=== PATIENT | female | born 1940 | race Caucasian/White ===

== ENCOUNTER 2016-10-01 11:06 | Outpatient (CLI) | payer MEDICARE, OTHER | END 2016-10-01 11:07 | disposition home or self-care (01) | DX: E78.2 Mixed hyperlipidemia (principal); Z79.899 Other long term (current) drug therapy; F32.9 Major depressive disorder, single episode, unspecified ==

== ENCOUNTER 2017-04-12 09:30 | Outpatient (CLI) | payer MEDICARE, OTHER ==
[2017-04-12 19:29] LABS: BASOPHILS % (AUTO) 1.1 %; EOSINOPHILS # (AUTO) 0.1 10^3/uL (0.0-0.7); HCT - HEMATOCRIT 36.6 % (37.0-47.0); HGB - HEMOGLOBIN 12.1 g/dL (12.0-16.0); LYMPHOCYTES # (AUTO) 1.1 10^3/uL (1.5-3.5); LYMPHOCYTES % (AUTO) 26.8 %; MEAN CORPUSCULAR HEMOGLOBIN 30.8 pg (27.0-31.0); MEAN CORPUSCULAR HGB CONC 33.1 g/dL (32.0-36.0); MEAN CORPUSCULAR VOLUME 92.9 fL (81.0-99.0); MONOCYTES # (AUTO) 0.3 10^3/uL (0.0-1.0); MONOCYTES % (AUTO) 6.9 %; NEUTROPHILS # (AUTO) 2.7 10^3/uL (1.5-6.6); NEUTROPHILS % (AUTO) 63.2 %; NUCLEATED RED BLOOD CELLS AUTO 0.2 /100WBC; RED BLOOD COUNT 3.94 10^6/uL (4.20-5.40); RED CELL DISTRIBUTION WIDTH 14.8 % (12.0-15.0); UNCORRECTED WHITE BLOOD COUNT 4.3 x10^3/uL; WHITE BLOOD COUNT 4.3 x10^3/uL (4.8-10.8)
[2017-04-12 19:33] LABS: CHOLESTEROL 270 mg/dL; HDL CHOLESTEROL 54 mg/dL; LDL/HDL RATIO 3.4 (<4.4); TRIGLYCERIDES 176 mg/dL; VLDL CHOLESTEROL 35 mg/dL
== END 2017-04-12 09:31 | disposition home or self-care (01) ==
LOC: LAB.F 09:30
PROVIDERS: ATTEND Physician Assistant Medical
DX: E78.2 Mixed hyperlipidemia (principal)
CPT/HCPCS: 36415; 80061; 85025

== ENCOUNTER 2018-02-13 11:41 | Outpatient (CLI) | payer MEDICARE, OTHER ==
--- NOTE | 2018-02-14 18:58 | Mammography Report ---
DIGITAL SCREENING MAMMOGRAM: 02/13/2018 COMPARISON: 05/14/2016, 04/23/2015, 07/09/2011, 04/22/2010 and 04/11/2009. TECHNIQUE: Bilateral digital CC and MLO projections. FINDINGS: There is extensive fatty replacement of the breast tissue. There is no dominant mass, architectural distortion, skin thickening, suspicious microcalcifications, or interval change. IMPRESSION: NEGATIVE. BIRADS category: 1, negative. Suggest return to routine screening in 12 months. STANDARD QUALIFYING STATEMENTS 1. This examination was reviewed with the aid of Computed-Aided Detection (CAD). 2. A negative or benign imaging report should not delay biopsy if clinically suspicious findings are present. Consider surgical consultation if warranted. More than 5% of cancers are not identified by imaging. 3. Dense breasts may obscure an underlying neoplasm. TD: 02/14/2018 18:13
== END 2018-02-13 11:42 | disposition home or self-care (01) ==
LOC: DI.S 11:41
PROVIDERS: ATTEND Physician Assistant Medical
DX: Z12.31 Encounter for screening mammogram for malignant neoplasm of breast (principal)
CPT/HCPCS: 77067

== ENCOUNTER 2019-10-02 09:37 | Outpatient (CLI) | payer MEDICARE, OTHER ==
[2019-10-02 18:12] LABS: CHOL/HDL RATIO 4.6 (<4.4); CHOLESTEROL 264 mg/dL; HDL CHOLESTEROL 57 mg/dL; LDL CHOLESTEROL,CALCULATED 176 mg/dL; LDL/HDL RATIO 3.1 (<4.4); VLDL CHOLESTEROL 31 mg/dL
== END 2019-10-02 09:38 | disposition home or self-care (01) ==
LOC: LAB.S 09:37
PROVIDERS: ATTEND Registered Nurse
DX: E78.5 Hyperlipidemia, unspecified (principal)
CPT/HCPCS: 36415; 80061; 83721

== ENCOUNTER 2019-10-02 12:47 | Outpatient (CLI) | payer MEDICARE, OTHER ==
--- NOTE | 2019-10-03 04:49 | CT Report ---
Reason: DIZZINESS Procedure Date: 10/02/2019 Accession Number: [id number] / [id number] Procedure: CT - HEAD WO CPT Code: Final Report FULL RESULT: EXAM: CT HEAD EXAM DATE: 10/02/2019 01:13 PM. CLINICAL HISTORY: DIZZINESS. COMPARISON: None. TECHNIQUE: Multiaxial CT images were obtained from the foramen magnum to the vertex. Reformats: Sagittal and coronal. IV contrast: None. In accordance with CT protocol optimization, one or more of the following dose reduction techniques were utilized for this exam: automated exposure control, adjustment of mA and/or KV based on patient size, or use of iterative reconstructive technique. FINDINGS: Parenchyma: No intraparenchymal hemorrhage. No evidence of mass, midline shift, or CT findings of infarction. Lopez-white differentiation is distinct. Extraaxial Spaces: Normal for age. No subdural or epidural collections identified. Ventricles: Normal in size and position. Sinuses and Orbits: Imaged paranasal sinuses, orbits, and mastoids show no significant abnormality. Bones: No evidence of fracture or calvarial defect. Other: None. IMPRESSION: No acute intracranial abnormalities. RADIA
== END 2019-10-02 12:48 | disposition home or self-care (01) ==
LOC: DI 12:47
PROVIDERS: ATTEND Registered Nurse
DX: R42 Dizziness and giddiness (principal); E78.5 Hyperlipidemia, unspecified
CPT/HCPCS: 36415; 70450; 80061

== ENCOUNTER 2021-10-16 10:31 | Outpatient (CLI) | payer MEDICARE, OTHER ==
[2021-10-16 14:36] LABS: BASOPHILS % (AUTO) 0.4 %; EOSINOPHILS # (AUTO) 0.1 10^3/uL (0.0-0.7); HCT - HEMATOCRIT 33.1 % (37.0-47.0); HGB - HEMOGLOBIN 10.7 g/dL (12.0-16.0); LYMPHOCYTES # (AUTO) 1.4 10^3/uL (1.5-3.5); LYMPHOCYTES % (AUTO) 28.8 %; MEAN CORPUSCULAR HEMOGLOBIN 30.3 pg (27.0-31.0); MEAN CORPUSCULAR HGB CONC 32.3 g/dL (32.0-36.0); MEAN CORPUSCULAR VOLUME 93.8 fL (81.0-99.0); MEAN PLATELET VOLUME 10.9 fL (7.9-10.8); MONOCYTES # (AUTO) 0.4 10^3/uL (0.0-1.0); MONOCYTES % (AUTO) 7.7 %; NEUTROPHILS % (AUTO) 61.7 %; PLT - PLATELET COUNT 244 10^3/uL (130-450); RED BLOOD COUNT 3.53 10^6/uL (4.20-5.40); RED CELL DISTRIBUTION WIDTH 14.4 % (12.0-15.0); WHITE BLOOD COUNT 4.9 x10^3/uL (4.8-10.8)
[2021-10-16 15:10] LABS: ALBUMIN/GLOBULIN RATIO 1.4 (1.0-2.2); ALKALINE PHOSPHATASE 45 IU/L (42-121); ALT ALANINE AMINOTRANSFERASE 17 IU/L (10-60); AST ASPARTATE AMINOTRANSFERASE 21 IU/L (10-42); BILIRUBIN,TOTAL 0.7 mg/dL (0.2-1.0); BUN - BLOOD UREA NITROGEN 28 mg/dL (6-20); CARBON DIOXIDE - CO2 26 mmol/L (21-32); CHLORIDE 99 mmol/L (101-111); CHOLESTEROL 259 mg/dL; CREATININE 1.1 mg/dL (0.4-1.0); GFR - MDRD 48 (>89); GLUCOSE 100 mg/dL (70-100); HDL CHOLESTEROL 64 mg/dL; LDL CHOLESTEROL,CALCULATED 175 mg/dL; LDL/HDL RATIO 2.7 (<4.4); POTASSIUM 3.7 mmol/L (3.5-5.0); SODIUM 136 mmol/L (135-145); TOTAL PROTEIN 6.8 g/dL (6.7-8.2); TRIGLYCERIDES 100 mg/dL; VLDL CHOLESTEROL 20 mg/dL
[2021-10-16 15:45] LABS: THYROID STIMULATING HORMONE 2.78 uIU/mL (0.34-5.60)
== END 2021-10-16 10:32 | disposition home or self-care (01) ==
LOC: LAB.S 10:31
PROVIDERS: ATTEND Registered Nurse
DX: E78.2 Mixed hyperlipidemia (principal); Z79.899 Other long term (current) drug therapy; Z79.890 Hormone replacement therapy
CPT/HCPCS: 36415; 80053; 80061; 83721; 84443; 85025

== ENCOUNTER 2021-12-29 17:04 | Outpatient (CLI) | payer MEDICARE, OTHER ==
--- NOTE | 2022-01-04 15:56 | Mammography Report ---
BILATERAL DIGITAL SCREENING MAMMOGRAM 3D/2D WITH EXAGGERATED CC: 12/29/2021 CLINICAL: Routine screening. Comparison is made to exams dated: 02/13/2018 mammogram, 05/14/2016 mammogram, 04/23/2015 mammogram, and 10/09/2013 mammogram - [facility]. The tissue of both breasts is predominantly fatt y. No significant masses, calcifications, or other findings are seen in either breast. There has been no significant interval change. IMPRESSION: NEGATIVE There is no mammographic evidence of malignancy. A 1 year screening mammogram is recommended. This exam was interpreted at Station ID: [id number]. NOTE: For mammograms, a report in lay terms will be sent to the patient. Approximately 15% of breast malignancies will not be visualized mammographically. In the management of a palpable breast mass, a negative mammogram must not discourage biopsy of a clinically suspicious lesion. Electronically Signed By: Miguel A Trinh M.D. aty/penrad:01/04/2022 14:26:07 ACR BI-RADS Category 1: Negative 3341F PARENCHYMAL PATTERN: (F) - The breast(s) demonstrate(s) diffuse fatty replacement. BI-RADS CATEGORY: (1) - 1 RECOMMENDATION: (ANNUAL) - Recommend routine annual screening mammography. [id number] 1 year screening LATERALITY: (B)
== END 2021-12-29 17:05 | disposition home or self-care (01) ==
LOC: DI.S 17:04
DX: Z12.31 Encounter for screening mammogram for malignant neoplasm of breast (principal)

== ENCOUNTER 2022-11-02 09:09 | Outpatient (CLI) | payer MEDICARE, OTHER ==
[2022-11-02 14:55] LABS: BASOPHILS % (AUTO) 0.6 %; EOSINOPHILS # (AUTO) 0.1 10^3/uL (0.0-0.7); HCT - HEMATOCRIT 33.8 % (37.0-47.0); HGB - HEMOGLOBIN 10.7 g/dL (12.0-16.0); LYMPHOCYTES # (AUTO) 1.3 10^3/uL (1.5-3.5); LYMPHOCYTES % (AUTO) 17.5 %; MEAN CORPUSCULAR HEMOGLOBIN 29.6 pg (27.0-31.0); MEAN CORPUSCULAR HGB CONC 31.7 g/dL (32.0-36.0); MEAN CORPUSCULAR VOLUME 93.4 fL (81.0-99.0); MEAN PLATELET VOLUME 10.4 fL (7.9-10.8); MONOCYTES # (AUTO) 0.5 10^3/uL (0.0-1.0); MONOCYTES % (AUTO) 7.5 %; NEUTROPHILS # (AUTO) 5.2 10^3/uL (1.5-6.6); NEUTROPHILS % (AUTO) 71.6 %; PLT - PLATELET COUNT 363 10^3/uL (130-450); RED BLOOD COUNT 3.62 10^6/uL (4.20-5.40); RED CELL DISTRIBUTION WIDTH 13.6 % (12.0-15.0); WHITE BLOOD COUNT 7.2 x10^3/uL (4.8-10.8)
[2022-11-02 15:28] LABS: THYROID STIMULATING HORMONE 4.57 uIU/mL (0.34-5.60)
[2022-11-02 15:30] LABS: ALBUMIN 3.6 g/dL (3.2-5.5); ALBUMIN/GLOBULIN RATIO 1.1 (1.0-2.2); ALKALINE PHOSPHATASE 73 IU/L (42-121); ALT ALANINE AMINOTRANSFERASE 22 IU/L (10-60); AST ASPARTATE AMINOTRANSFERASE 24 IU/L (10-42); BILIRUBIN,TOTAL 0.7 mg/dL (0.2-1.0); BUN - BLOOD UREA NITROGEN 21 mg/dL (6-20); CALCIUM 11.2 mg/dL (8.5-10.3); CARBON DIOXIDE - CO2 30 mmol/L (21-32); CHLORIDE 104 mmol/L (101-111); CHOLESTEROL 210 mg/dL; GFR - MDRD 53 (>89); GLUCOSE 91 mg/dL (70-100); HDL CHOLESTEROL 42 mg/dL; LDL CHOLESTEROL,CALCULATED 146 mg/dL; LDL/HDL RATIO 3.5 (<4.4); POTASSIUM 4.6 mmol/L (3.5-5.0); SODIUM 143 mmol/L (135-145); TOTAL PROTEIN 6.9 g/dL (6.7-8.2); TRIGLYCERIDES 112 mg/dL; VLDL CHOLESTEROL 22 mg/dL
== END 2022-11-02 09:10 | disposition home or self-care (01) ==
LOC: LAB.S 09:09
PROVIDERS: ATTEND Registered Nurse
DX: E78.2 Mixed hyperlipidemia (principal); Z79.899 Other long term (current) drug therapy
CPT/HCPCS: 36415; 80053; 80061; 83721; 84443; 85025

== ENCOUNTER 2022-11-05 11:40 | Outpatient (CLI) | payer MEDICARE, OTHER | END 2022-11-05 11:41 | disposition home or self-care (01) | LOC: LAB.S 11:40 | PROVIDERS: ATTEND Registered Nurse | DX: E83.52 Hypercalcemia (principal) | CPT/HCPCS: 82330 ==

== ENCOUNTER 2022-11-16 10:32 | Outpatient (CLI) | payer MEDICARE, OTHER | END 2022-11-16 10:33 | disposition home or self-care (01) | LOC: LAB.S 10:32 | PROVIDERS: ATTEND Registered Nurse | DX: E83.52 Hypercalcemia (principal) | CPT/HCPCS: 36415; 82397; 83970 ==

== ENCOUNTER 2022-12-14 12:45 | Outpatient (CLI) | payer MEDICARE, OTHER | END 2022-12-14 12:46 | disposition home or self-care (01) | LOC: DI 12:45 | PROVIDERS: ATTEND Registered Nurse | DX: R55 Syncope and collapse (principal); R01.1 Cardiac murmur, unspecified | CPT/HCPCS: 93306 ==

== ENCOUNTER 2023-07-19 11:37 | Outpatient (CLI) | payer MEDICARE, OTHER ==
[2023-07-19 15:03] LABS: BASOPHILS % (AUTO) 0.9 %; EOSINOPHILS # (AUTO) 0.1 10^3/uL (0.0-0.7); EOSINOPHILS % (AUTO) 1.8 %; HCT - HEMATOCRIT 34.7 % (37.0-47.0); HGB - HEMOGLOBIN 10.5 g/dL (12.0-16.0); LYMPHOCYTES # (AUTO) 1.2 10^3/uL (1.5-3.5); LYMPHOCYTES % (AUTO) 25.8 %; MEAN CORPUSCULAR HEMOGLOBIN 29.8 pg (27.0-31.0); MEAN CORPUSCULAR HGB CONC 30.3 g/dL (32.0-36.0); MEAN CORPUSCULAR VOLUME 98.6 fL (81.0-99.0); MEAN PLATELET VOLUME 10.9 fL (7.9-10.8); MONOCYTES # (AUTO) 0.3 10^3/uL (0.0-1.0); MONOCYTES % (AUTO) 7.2 %; NEUTROPHILS # (AUTO) 2.9 10^3/uL (1.5-6.6); NEUTROPHILS % (AUTO) 64.3 %; PLT - PLATELET COUNT 239 10^3/uL (130-450); RED BLOOD COUNT 3.52 10^6/uL (4.20-5.40); RED CELL DISTRIBUTION WIDTH 14.3 % (12.0-15.0); WHITE BLOOD COUNT 4.6 x10^3/uL (4.8-10.8)
[2023-07-19 15:28] LABS: THYROID STIMULATING HORMONE 3.39 uIU/mL (0.34-5.60)
[2023-07-19 15:48] LABS: ALBUMIN 4.2 g/dL (3.2-5.5); ALBUMIN/GLOBULIN RATIO 1.6 (1.0-2.2); ALKALINE PHOSPHATASE 61 IU/L (42-121); ALT ALANINE AMINOTRANSFERASE 12 IU/L (10-60); AST ASPARTATE AMINOTRANSFERASE 18 IU/L (10-42); BILIRUBIN,TOTAL 0.5 mg/dL (0.2-1.0); BUN - BLOOD UREA NITROGEN 28 mg/dL (6-20); CALCIUM 10.3 mg/dL (8.5-10.3); CARBON DIOXIDE - CO2 29 mmol/L (21-32); CHLORIDE 103 mmol/L (101-111); CHOL/HDL RATIO 3.6 (<4.4); CHOLESTEROL 215 mg/dL; CREATININE 1.2 mg/dL (0.6-1.3); GFR - MDRD 43 (>89); GLUCOSE 88 mg/dL (74-104); HDL CHOLESTEROL 59 mg/dL; LDL CHOLESTEROL,CALCULATED 137 mg/dL; LDL/HDL RATIO 2.3 (<4.4); POTASSIUM 3.9 mmol/L (3.5-4.5); SODIUM 138 mmol/L (135-145); TOTAL PROTEIN 6.8 g/dL (6.4-8.9); TRIGLYCERIDES 94 mg/dL (48-352); VLDL CHOLESTEROL 19 mg/dL
== END 2023-07-19 11:38 | disposition home or self-care (01) ==
LOC: LAB.S 11:37
PROVIDERS: ATTEND Registered Nurse
DX: Z13.228 Encounter for screening for other metabolic disorders (principal); Z13.220 Encounter for screening for lipoid disorders; Z13.29 Encounter for screening for other suspected endocrine disorder; Z13.0 Encounter for screening for diseases of the blood and blood-forming organs and certain disorders involving the immune mechanism
CPT/HCPCS: 36415; 80053; 80061; 83721; 84443; 85025

== ENCOUNTER 2023-08-24 08:26 | Day surgery (SDC) | payer MEDICARE, OTHER ==
[2023-08-24] MEDS ORDERED: LACTATED RINGERS 1,000 ML IV ONE ×2 (08:49→10:20)
--- NOTE | 2023-08-24 09:31 | ANESTHESIA ---
Pre-Anesthesia VS, & Labs - Diagnosis screening, hx of polypectomy - Procedure colonoscopy Vital Signs: Temp Pulse Resp BP Pulse Ox O2 Flow Rate 36.1 C L 76 16 163/92 H 100 08/24/23 08:50 08/24/23 08:50 08/24/23 08:50 08/24/23 08:50 08/24/23 08:50 Height: 5 ft 2 in Weight (kg): 59.1 kg Body Mass Index: 23.8 BMI Classification: Normal - NPO >8 hours - Is Patient ?: No Home Medications and Allergies Home Medications: Ambulatory Orders No Known Home Medications 08/23/23 No Known Home Medications 08/23/23 Allergies/Adverse Reactions: Allergies Allergy/AdvReac Type Severity Reaction Status Date / Time Sulfa (Sulfonamide Allergy Unknown Verified 08/06/16 17:32 Antibiotics) Anes History & Medical History - Anesthetic History Anesthesia Complications: reports: No previous complications Family history of Anesthesia Complications: Denies Family history of Malignant Hyperthermia: Denies - Medical History Cardiovascular: reports: None, Murmur Pulmonary: reports: None Gastrointestinal: reports: None Urinary: reports: None Neuro: reports: None Endocrine/Autoimmune: reports: None Smoking Status: Never smoker Psychosocial: reports: No issues indicated History of Cancer?: No - Surgical History General: reports: Appendectomy Eyes Ears Nose Throat (EENT): reports: Tonsil/Adenoidectomy Gynecologic: reports: Hysterectomy, Other Exam General: Alert, Oriented x3, Cooperative Dental: WNL Mouth Openin Fingerbreadth Neck Mobility: Normal Mallampati classification: I Thyromental Distance: 4-6 cm Respiratory: Lungs clear Cardiovascular: Regular rate Plan Anesthesia Type: General, Total IV Consent for Procedure(s) Verified and Reviewed: Yes Code Status: Attempt Resuscitation ASA classification: 2-Mild systemic disease Is this case an emergency?: No
[2023-08-24] MEDS ORDERED: PROPOFOL 500 MG/50 ML 500 MG/50 ML VIAL ONE (09:46)
[2023-08-24 11:03] VITALS: BP 154/91; O2SAT 98
--- NOTE | 2023-08-24 12:47 | ANESTHESIA POST OP EVALUATION ---
Anesthesia Post Eval - Post Anesthesia Eval Vitals: Last Vital Signs Temp 99 C H 08/24/23 10:20 Pulse 58 L 08/24/23 11:01 Resp 16 08/24/23 11:01 BP 154/91 H 08/24/23 11:01 Pulse Ox 98 08/24/23 11:01 O2 Flow Rate CV Function Including HR & BP: Stable Pain Control: Satisfactory Nausea & Vomiting: Negative Mental Status: Baseline Respiratory Status: Airway Patent Hydration Status: Satisfactory Anesthesia Complications: None
== END 2023-08-24 08:27 | disposition home or self-care (01) ==
LOC: SDS 08:26
PROVIDERS: ATTEND Surgery
DX: Z12.11 Encounter for screening for malignant neoplasm of colon (principal); K64.1 Second degree hemorrhoids; K57.30 Diverticulosis of large intestine without perforation or abscess without bleeding; Z80.0 Family history of malignant neoplasm of digestive organs
CPT/HCPCS: G0105; J7120

== ENCOUNTER 2024-02-02 08:43 | Outpatient (CLI) | payer MEDICARE, OTHER | END 2024-02-02 08:44 | disposition critical access hospital (66) | LOC: EMS 08:43 | DX: R10.84 Generalized abdominal pain (principal) | CPT/HCPCS: A0425; A0429 ==

== ENCOUNTER 2024-02-02 09:18 | Inpatient (IN) | payer MEDICARE, OTHER ==
--- NOTE | 2024-02-02 09:39 | ED Physician Documentation ---
PD HPI ABD PAIN - Stated complaint Stated Complaint: ABD PX - Chief complaint Chief Complaint: Abd Pain - History obtained from History obtained from: Patient - History of Present Illness Timing - onset: Last night Timing - details: Abrupt onset, Still present (mostly improved with just some upper abd pain and nausea.) Quality: Cramping, Aching, Pain Location: RUQ Radiation: Lower back Improved by: No: Laying still Worsened by: Moving, Palpation. No: Breathing Associated symptoms: Nausea. No: Fever, Diarrhea, Constipation Similar symptoms before: Has not had sx before Recently seen: Not recently seen Review of Systems Constitutional: denies: Fever, Chills GI: denies: Nausea, Vomiting, Diarrhea, Bloody / black stool Musculoskeletal: denies: Neck pain, Back pain PD PAST MEDICAL HISTORY - Past Medical History Cardiovascular: None, Murmur Respiratory: None Neuro: None Endocrine/Autoimmune: None GI: None : None - Past Surgical History Past Surgical History: Yes General: Appendectomy /[employer]ER: Hysterectomy, Other HEENT: Tonsil/Adenoidectomy - Present Medications Home Medications: Ambulatory Orders Medication Instructions Recorded Confirmed No Known Home Medications 08/23/23 02/02/24 - Allergies Allergies/Adverse Reactions: Allergies Allergy/AdvReac Type Severity Reaction Status Date / Time Sulfa (Sulfonamide Allergy Unknown Verified 02/02/24 09:36 Antibiotics) - Living Situation Living Arrangement: reports: At home - Social History Does the pt smoke?: No Smoking Status: Never smoker Does the pt drink ETOH?: Yes ETOH Use: Other (occasional, not regular.) Does the pt have substance abuse?: No - Immunizations Immunizations are current?: Yes - POLST Patient has POLST: No PD ED PE NORMAL - Vitals Vital signs reviewed: Yes - General General: Alert and oriented X 3, No acute distress, Well developed/nourished - HEENT HEENT: Pharynx benign - Neck Neck: Supple, no meningeal sign, No adenopathy - Cardiac Cardiac: RRR, No murmur - Respiratory Respiratory: No respiratory distress, Clear bilaterally - Abdomen Abdomen: Normal bowel sounds, Soft, Non distended, Other (ly without guarding nor percussion tender epigastric and RUQ. ) - Back Back: No CVA TTP - Derm Derm: Normal color, Warm and dry - Extremities Extremities: No tenderness to palpate, Normal ROM s pain - Neuro Neuro: Alert and oriented X 3, No motor deficit, No sensory deficit, Normal speech Results - Vitals Vitals: Vital Signs - 24 hr 02/02/24 02/02/24 02/02/24 09:27 11:34 13:00 Temperature 37.9 C Heart Rate 74 73 64 Respiratory 15 18 15 Rate Blood Pressure 174/93 H 140/80 H 137/81 H O2 Saturation 100 100 100 02/02/24 02/02/24 15:00 17:00 Temperature Heart Rate 75 66 Respiratory 20 19 Rate Blood Pressure 94/71 147/71 H O2 Saturation 99 100 Oxygen O2 Source Room air - Labs Labs: Laboratory Tests 02/02/24 02/02/24 02/02/24 09:42 09:42 09:42 WBC 10.0 RBC 3.69 L Hgb 11.0 L Hct 33.7 L MCV 91.3 MCH 29.8 MCHC 32.6 RDW 14.3 Plt Count 223 MPV 10.4 Neut # (Auto) 9.2 H Lymph # (Auto) 0.4 L [place] # (Auto) 0.3 Eos # (Auto) 0.0 Baso # (Auto) 0.0 Absolute Nucleated RBC 0.00 Nucleated RBC % 0.0 Sodium 135 Potassium 3.6 Chloride 101 Carbon Dioxide 28 Anion Gap 6.0 BUN 27 H Creatinine 0.9 Estimated GFR (MDRD) 60 L Glucose 151 H Calcium 10.3 Total Bilirubin 1.6 H AST 2446 H ALT 1621 H Alkaline Phosphatase 243 H Troponin I High Sens 6.0 Total Protein 6.7 Albumin 4.1 Globulin 2.6 Albumin/Globulin Ratio 1.6 Lipase 2748 H Urine Color Urine Clarity Urine pH Ur Specific [place] Urine Protein Urine Glucose (UA) Urine Ketones Urine Occult Blood Urine Nitrite Urine Bilirubin Urine Urobilinogen Ur Leukocyte Esterase Urine RBC Urine WBC Ur Squamous Epith Cells Urine Bacteria Ur Microscopic Review Urine Culture Comments 02/02/24 09:45 WBC RBC Hgb Hct MCV MCH MCHC RDW Plt Count MPV Neut # (Auto) Lymph # (Auto) [place] # (Auto) Eos # (Auto) Baso # (Auto) Absolute Nucleated RBC Nucleated RBC % Sodium Potassium Chloride Carbon Dioxide Anion Gap BUN Creatinine Estimated GFR (MDRD) Glucose Calcium Total Bilirubin AST ALT Alkaline Phosphatase Troponin I High Sens Total Protein Albumin Globulin Albumin/Globulin Ratio Lipase Urine Color YELLOW Urine Clarity CLOUDY Urine pH 7.0 Ur Specific [place] 1.025 Urine Protein 30 H Urine Glucose (UA) NEGATIVE Urine Ketones NEGATIVE Urine Occult Blood TRACE-INTA Urine Nitrite POSITIVE H Urine Bilirubin NEGATIVE Urine Urobilinogen 0.2 (NORMAL) Ur Leukocyte Esterase TRACE H Urine RBC 0-5 Urine WBC 6-10 H Ur Squamous Epith Cells MANY Squamous H Urine Bacteria Many H Ur Microscopic Review INDICATED Urine Culture Comments NOT INDICATED - Rads (name of study) abd/pelvic CT Relevant Findings:: Prelim report reviewed (GB wall thickening and surrounding fluid. Mild pancreatic edema. ) RUQ US Relevant Findings:: Prelim report reviewed (pericholecystic fluid. GB wall 7mm, polyp at fundus. Neg urphys. CBD not seen. ), EMP independent interpretation of test MRCP Relevant Findings:: Final report received (CHolecystitis and pancreatic inflammation. No evidence for choledocolithiasis. ) PD Medical Decision Making - ED course Complexity details: reviewed results (The patient has elevated LFTs and lipase. CT scan was initially done and showed some gallbladder wall thickening with some mild inflammation of the pancreas. This is disproportionate to her degree of lipase elevation so more inclined to think abrupt onset of the inflammation. consider CBD block. ), considered differential (The abrupt onset of pain in the area several hours after eating hot dog. She does have elevated LFTs and lipase and alk phos. Consideration for common bile duct blockage or acute cholecystitis with ascending cholangitis. Her pain has improved quite a bit so more likely to think the former.), d/w patient Reviewed Lab Results: The CT scan was suggestive of both cholecystitis with some wall thickening and pericholecystic fluid and also some pancreatic mild inflammation. At this point would want to evaluate for common bile bile duct blockage. Ultrasound was performed as the patient was reluctant to get an MRI initially. The ultrasound showed gallbladder wall thickening. They could not visualize the common bile duct. I talked with the patient again and she is a agreeable at this point for MRCP. I talked with the nanoscience technician who states he can do an MR CP likely around 4 PM. The patient on reexam is having minimal tenderness in the epigastric to right upper quadrant area. My feeling is likely she had a common bile duct blockage that is not still clogged based on her level of symptoms. However we would want to evaluate it and at least get a visualization of the CBD. MRCP does seem appropriate as given her level of symptoms, I would not automatically think she needs an ERCP unless otherwise demonstrated continued blockage. Departure - Departure Disposition: [facility] DC/Xfer Clinical Impression: Acute upper abdominal pain, Acute cholecystitis, Acute gallstone pancreatitis Condition: Stable Record reviewed to determine appropriate education?: Yes Discharge Date/Time: 02/02/24 19:15
[2024-02-02 09:47] LABS: BASOPHILS % (AUTO) 0.1 %; HCT - HEMATOCRIT 33.7 % (37.0-47.0); LYMPHOCYTES # (AUTO) 0.4 10^3/uL (1.5-3.5); LYMPHOCYTES % (AUTO) 3.9 %; MEAN CORPUSCULAR HEMOGLOBIN 29.8 pg (27.0-31.0); MEAN CORPUSCULAR HGB CONC 32.6 g/dL (32.0-36.0); MEAN CORPUSCULAR VOLUME 91.3 fL (81.0-99.0); MEAN PLATELET VOLUME 10.4 fL (7.9-10.8); MONOCYTES # (AUTO) 0.3 10^3/uL (0.0-1.0); NEUTROPHILS # (AUTO) 9.2 10^3/uL (1.5-6.6); NEUTROPHILS % (AUTO) 92.8 %; PLT - PLATELET COUNT 223 10^3/uL (130-450); RED BLOOD COUNT 3.69 10^6/uL (4.20-5.40); RED CELL DISTRIBUTION WIDTH 14.3 % (12.0-15.0)
[2024-02-02 09:53] LABS: BILIRUBIN,URINE NEGATIVE (NEGATIVE); GLUCOSE, URINE (UA) NEGATIVE (NEGATIVE); KETONES,URINE (UA) NEGATIVE (NEGATIVE); LEUKOCYTE ESTERASE, URINE TRACE (NEGATIVE); NITRITE,URINE POSITIVE (NEGATIVE); OCCULT BLOOD,URINE TRACE-INTA (NEGATIVE); PROTEIN,URINE 30 mg/dL (NEGATIVE); UROBILINOGEN,URINE 0.2 (NORMAL) E.U./dL (NORMAL)
[2024-02-02 09:55] LABS: CLARITY,URINE CLOUDY (CLEAR)
[2024-02-02 10:15] LABS: BACTERIA,URINE Many /HPF (None Seen); RBC,URINE 0-5 /HPF (0-5); SQUAMOUS EPITHELIAL CELL,UR MANY Squamous (<= Few)
[2024-02-02] MEDS: KETOROLAC 15 MG/ML VIAL IVP STA (10:27)
[2024-02-02] MEDS: SODIUM CHLORIDE 0.9% 1,000 ML IV STA (10:27)
[2024-02-02 10:41] LABS: ALBUMIN 4.1 g/dL (3.2-5.5); ALBUMIN/GLOBULIN RATIO 1.6 (1.0-2.2); BILIRUBIN,TOTAL 1.6 mg/dL (0.2-1.0); CALCIUM 10.3 mg/dL (8.5-10.3); CREATININE 0.9 mg/dL (0.6-1.3); POTASSIUM 3.6 mmol/L (3.5-4.5); TOTAL PROTEIN 6.7 g/dL (6.4-8.9)
[2024-02-02] MEDS ORDERED: iohexoL-300 100 ML VIAL ONE (10:45)
--- NOTE | 2024-02-02 11:33 | CT Report ---
PROCEDURE: Abdomen/Pelvis W INDICATIONS: mid/upper abd pain since lst night CONTRAST: Omni 300 100ml TECHNIQUE: After the administration of intravenous contrast, a CT scan of the abdomen and pelvis was performed. Images were recorded and evaluated at appropriate window settings. Reformats: coronal and sagittal. F or radiation dose reduction, the following was used: automated exposure control, adjustment of mA and /or kV according to patient size. COMPARISON: None FINDINGS: Image quality: Diagnostic Lower chest: Bibasilar atelectasis/scarring. Possible small hiatal hernia. Liver: Unremarkable. Segment 6 cavernous hemangioma Gallbladder and biliary system: Possible cystic spaces around the gallbladder versus pericholecystic fluid. No pathologic biliary dilation Pancreas: Mildly ectatic duct. Mild fat stranding around the pancreas. Spleen: Unremarkable, not enlarged Adrenals: No discrete nodules Kidneys: No solid mass. No hydronephrosis. Vessels and lymph nodes: The main portal vein is patent. No abdominal aortic aneurysm. No pathologic lymph nodes by size criteria. There are atherosclerotic calcifications. Bowel and peritoneum: No evidence of small bowel obstruction. Prominent fluid-filled loops of small b owel along with mild gastric wall thickening. No acute small bowel obstruction. There is moderate fec al loading. The colon is tortuous. Colonic diverticula are seen, without significant active inflammat ion. Body wall: Mild diffuse anasarca Pelvis: Bladder is unremarkable. Uterus is not seen Bones: No acute or suspicious osseous finding. Age-indeterminate height loss of the L2 vertebral body . IMPRESSION: Prominent fluid-filled loops of small bowel along with mild gastric wall thickening, possibly gastroe nteritis. No acute small bowel obstruction. Gastric wall thickening could be better evaluated with en doscopy if clinically needed. Possible small hiatal hernia. Moderate fecal loading. Colonic diverticula without evidence of acute inflammation. No drainable absc ess or pathologic ascites. There is mild possible fat stranding around the pancreas without altered enhancement, correlate with lipase. Nonspecific pericholecystic fluid. If there are right upper quadrant symptoms, consider ultrasound co rrelation. Age-indeterminate L2 height loss. Other findings as above. Reviewed by: Armand Sol MD on 02/02/2024 11:32 AM PDT Approved by: Armand Sol MD on 02/02/2024 11:32 AM PDT Station ID: [id number]
--- NOTE | 2024-02-02 13:52 | Ultrasound Report ---
PROCEDURE: Abdomen Limited INDICATIONS: upper abd pain overnight; elevated LFTs/lipase TECHNIQUE: Real-time focused scanning was performed of the abdomen, with image documentation. COMPARISONS: Same-day CT FINDINGS: Liver measures 14 cm. There is significant pericholecystic fluid and mild to moderate wall thickening at 5 mm. No sonograph ic Peterson's sign (patient was on a medications.) Suspected 9 mm polyp is seen at the fundus. CBD is not well seen. Right kidney measures 11 cm. IVC is patent. IMPRESSION: Pericholecystic fluid and gallbladder wall thickening. No sonographic Peterson's sign, however the ramana ent was on pain medications. Differential includes reactive changes from liver or pancreas inflammation versus primary gallbladder inflammation.. 9 mm possible gallbladder polyp at the fundus. Consider one-year follow-up if clinically indicated al lowing for patient's age. Reviewed by: Armand Sol MD on 02/02/2024 1:50 PM PDT Approved by: Armand Sol MD on 02/02/2024 1:50 PM PDT Station ID: [id number]
[2024-02-02] MEDS: iohexoL-300 100 ML VIAL IVP ONE (15:19)
--- NOTE | 2024-02-02 16:22 | ED Physician Documentation ---
ED Addendum - Addendum Addendum: 02/02/24 16:[address] Dalton at shift change pending MRCP. 02/02/24 17:15 MRCP completed. She has findings of cholecystitis and gallstones as well as pancreatitis but no common duct stone. Spoke with Dr. Jones, her surgeon who recommends admission to medicine for bowel rest. We discussed antibiotics and he feels she does not need them at this point. Initial call to the hospitalist at this time with no answer. Disposition: Admitted Condition: Stable Diagnosis: 1. Gallstone pancreatitis
--- NOTE | 2024-02-02 16:56 | MRI Report ---
PROCEDURE: MRCP WO INDICATIONS: RUQ pain, elevated enzymes; US not seen CBD CONTRAST: None TECHNIQUE: Coronal ultra fast SE through the abdomen, axial 2-D spoiled GE in- and [id number], and breath-hold T2 FSE with fat saturation through the biliary system and pancreas. Oblique coronal and axial thin- slice ultra fast SE, radial thick-slab ultra fast SE centered on the extrahepatic bile ducts. COMPARISON: Ultrasound 02/02/2024, CT 02/02/2024. FINDINGS: Image quality: Excellent. Gallbladder: Gallstones with gallbladder wall thickening. Pericholecystic edema is present. Biliary tree: No intrahepatic or extrahepatic dilation. No filling defects within the common bile leanne t. Pancreas: No pancreatic ductal dilation. Mild edema surrounding the pancreas. Lung bases and heart: Unremarkable. Liver: Hemangioma in segment 6. Spleen: No splenomegaly. Adrenals: No adrenal nodule. Kidneys and ureters: No hydronephrosis. No renal cystic lesion which requires follow up. No solid mas s. Bowel and peritoneum: No bowel distension. No pathologic free fluid. Lymph nodes: No central or retroperitoneal adenopathy. Vessels: No infrarenal aortic aneurysm. Bones: No aggressive osseous abnormality. Grade 1 anterolisthesis of L5 on S1. Stable L1 compression deformity. Other: No significant ventral hernia. IMPRESSION: Suspected acute cholecystitis, with focal wall thickening and pericholecystic edema in the setting of gallstones. Questionable acute interstitial pancreatitis. Correlate with lipase. No evidence of choledocholithiasis. Reviewed by: Remigio Andrade MD on 02/02/2024 4:54 PM PDT Approved by: Remigio Andrade MD on 02/02/2024 4:54 PM PDT Station ID: [id number]
[2024-02-02] MEDS: HYDROmorphone 0.5 MG/0.5 ML SYRINGE IVP STA (17:24)
[2024-02-02] MEDS ORDERED: ONDANSETRON 4 MG/2 ML VIAL IVP PRN (18:12)
[2024-02-02] MEDS ORDERED: MORPHINE 2 MG/ML CARPUJECT IVP PRN (18:12)
--- NOTE | 2024-02-02 18:22 | HISTORY & PHYSICAL EXAMINATION ---
Chief Complaint - Chief Complaint Chief Complaint: Abdominal pain History of Present Illness - Admitted From Admitted From:: Emergency room - History Obtained From Records Reviewed: Yes History obtained from: Patient - History of Present Illness HPI Comment/Other: The patient is an extremely pleasant 83-year-old female with no significant past medical history. She was in her usual state of health until yesterday evening. The patient said that she ate dinner and right afterwards developed severe epigastric pain. The pain worsened and spread across her abdomen and into her chest. This morning the pain was still present so she presented to an outpatient urgent care and was referred to the emergency room. Workup in the emergency room revealed white blood cell count of 10.0, hemoglobin 11.0, platelet level of 223. Sodium level is 135, potassium 3.6, creatinine of 0.9 with a BUN of 27. Glucose level is 151. Total bilirubin was 1.6, AST 2446, ALT 1621, alkaline phosphatase was 243. Lipase was elevated at 2749. The patient had a CT scan of the abdomen and pelvis which revealed prominent fluid- filled loops of small bowel along with mild gastric wall thickening, possibly gastroenteritis. No acute small bowel obstruction. She there was mild possible fat stranding around the pancreas and nonspecific pericholecystic fluid. Abdominal ultrasound revealed gallbladder wall thickening with pericholecystic fluid. Negative sonographic Peterson sign but the pain had been given patient had been given pain medications. There was a 9 mm possible gallbladder polyp at the fundus. The patient then had an MRCP. She was found to have suspected acute cholecystitis with focal wall thickening and pericholecystic edema in the set ting of gallstones. We did discuss the patient's CODE STATUS. The patient would like to be a full code and would want all aggressive measures to save her life. 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: Hysterectomy, Other HEENT: reports: Tonsil/Adenoidectomy - Family & Social History Living arrangement: At home Living Situation: With spouse/s.o., With family - Substance History Use: Uses substance without health or social issues: Alcohol (She occasionally uses alcohol socially) - POLST Patient has POLST: No POLST Status: Full Code Meds/Allgy - Home Medications Home Medications: Ambulatory Orders Medication Instructions Recorded Confirmed No Known Home Medications 08/23/23 02/02/24 - Allergies Allergies/Adverse Reactions: Allergies Allergy/AdvReac Type Severity Reaction Status Date / Time Sulfa (Sulfonamide Allergy Unknown Verified 02/02/24 09:36 Antibiotics) Review of Systems - Constitutional Constitutional: reports: Poor appetite - Eyes Eyes: denies: Pain, Irritation - Ears, Nose & Throat Ears, Nose & Throat: denies: Ear pain, Hearing loss - Cardiovascular Cariovascular: denies: Palpitations, Chest pain, Lightheadedness - Respiratory Respiratory: denies: Cough, Sputum production - Gastrointestinal Gastrointestinal: reports: Abdominal pain, Nausea, Poor appetite - Genitourinary Genitourinary: denies: Dysuria - Integumentary Integumentary: denies: Rash - Psychiatric Psychiatric: denies: Depression, Anxiety - Hematologic/Lymphatic Hematologic/Lymphatic: reports: Anemia - All Other Systems All Other Systems: reports: Reviewed and negative Prior Level of Functionality: The patient is fully functional with her ADLs. Exam - Vital Signs Reviewed Vital Signs: Yes Vital Signs: Vital Signs x48h Pulse Resp BP Pulse Ox 02/02/24 17:00 66 19 147/71 H 100 02/02/24 15:00 75 20 94/71 99 02/02/24 13:00 64 15 137/81 H 100 02/02/24 11:34 73 18 140/80 H 100 - Physical Exam General Appearance: positive: No acute distress, Alert Eyes Bilateral: positive: Normal inspection ENT: positive: ENT inspection nml Neck: positive: Nml inspection Respiratory: positive: Chest non-tender, No respiratory distress, Breath sounds nml Cardiovascular: positive: Regular rate & rhythm, Systolic murmur Peripheral Pulses: positive: 2+ Abdomen: positive: Tenderness (The patient has mild tenderness to palpation in the epigastric area and across the whole upper abdomen.). negative: Guarding, Rebound Skin: positive: Color nml, No rash, Warm, Dry Extremities: positive: Non-tender, Full ROM Neurologic/Psychiatric: positive: Oriented x3, CN's nml (2-12) Sepsis Event Note (H) - Evaluation Current Stage of Sepsis: Ruled out Conclusion/Plan - Problem List (1) Gallstone pancreatitis Conclusion/Plan: The patient likely has gallstone pancreatitis. She has markedly elevated transaminases and an elevated bilirubin of 1.6. Lipase is elevated greater than 2000. The patient will be made NPO. She may have sips and chips. We will monitor liver function test. General surgery will be consulted for consideration of cholecystitis cholecystectomy during this hospitalization. (2) Elevated liver function tests Conclusion/Plan: The patient has markedly elevated liver function test likely due to gallstone pancreatitis. Will check a liver panel in the morning. (3) Cholelithiasis and acute cholecystitis without obstruction Conclusion/Plan: Patient there was no evidence of biliary obstruction on MRCP. General surgery has been consulted. Hopefully after her pancreatitis begins to resolve she can have her gallbladder removed during this hospitalization. (4) Anemia Conclusion/Plan: The patient has a normocytic anemia consistent with chronic disease. She will have a CBC in the morning. (5) Hyperglycemia Conclusion/Plan: No history of diabetes. This is likely reactive to her acute illness. She will have a chemistry panel drawn in the morning (6) Systolic murmur Conclusion/Plan: The patient has a known heart murmur. No cardiac issues at present. Will defer to her primary care provider as to whether further workup is necessary Overall the patient is being admitted for gallstone pancreatitis. At this juncture in time I expect her hospitalization to span greater than 2 midnights. She likely will need cholecystectomy during this hospitalization. Time spent: 45 minutes - Lab Results Fish Bones: 02/02/24 09:42 02/02/24 09:42 Core Measures - Anticipated LOS I expect patient to be DC'd or transferred within 96 hours.: Yes - Issues Hospital Issues and Management Plan: The patient will be n.p.o. due to gallstone pancreatitis. Likely will have cholecystectomy during this hospitalization - DVT/VTE - Prophylaxis VTE/DVT Device ordered at admit?: Yes - Stroke - Rehab Assessment Rehab services assessment to be ordered?: No - AMI - Statin at Admit Aspirin Prescribed on Admit: No
[2024-02-02] MEDS: SODIUM CHLORIDE FLUSH 0.9% 10 ML SYRINGE IVP PRN (19:59)
[2024-02-02] MEDS: SODIUM CHLORIDE FLUSH 0.9% 10 ML SYRINGE IVP SCH (19:59)
[2024-02-02] MEDS: SODIUM CHLORIDE 0.9% 1,000 ML IV SCH (19:59)
--- NOTE | 2024-02-02 22:13 | PROVIDER PROGRESS NOTE ---
Sped Teacher Note - Sped Teacher Note Sped Teacher Note: RN paged "Came to ED for abd pain found to have cholecystitis with gallstones and pancreatitis. Labs significant for elevated liver enzymes and lipase. Medical staff also obtained UA from Pt this AM, UA resulted positive for Nitrates and Many bacteria. Pt overall asymptomatic. On chart review there is no mention of UTI in any notes and no abd have been prescribed. just wanted to be sure it was on the radared for the providers." UA reviewed. noted many squamous cells. not clean and contaminated. consider UCx. defer to inhosp hospitalist to assess patient at bedside Arleth Cronin
[2024-02-03 07:44] LABS: BASOPHILS % (AUTO) 0.3 %; EOSINOPHILS # (AUTO) 0.3 10^3/uL (0.0-0.7); EOSINOPHILS % (AUTO) 3.5 %; HCT - HEMATOCRIT 32.8 % (37.0-47.0); HGB - HEMOGLOBIN 10.5 g/dL (12.0-16.0); LYMPHOCYTES % (AUTO) 13.5 %; MEAN CORPUSCULAR HEMOGLOBIN 29.4 pg (27.0-31.0); MEAN CORPUSCULAR VOLUME 91.9 fL (81.0-99.0); MEAN PLATELET VOLUME 10.7 fL (7.9-10.8); MONOCYTES # (AUTO) 0.2 10^3/uL (0.0-1.0); NEUTROPHILS # (AUTO) 5.6 10^3/uL (1.5-6.6); NEUTROPHILS % (AUTO) 79.4 %; PLT - PLATELET COUNT 204 10^3/uL (130-450); RED BLOOD COUNT 3.57 10^6/uL (4.20-5.40); RED CELL DISTRIBUTION WIDTH 14.6 % (12.0-15.0); WHITE BLOOD COUNT 7.1 x10^3/uL (4.8-10.8)
--- NOTE | 2024-02-03 07:55 | CONSULTATION NOTE ---
Surgery Consult - Admit Date Hospital Admission Date: 02/02/24 - Home Meds/Allergies Home Medications: Patient History Medication Instructions Recorded Confirmed No Known Home Medications 08/23/23 02/02/24 Allergies/Adverse Reactions: Allergies Allergy/AdvReac Type Severity Reaction Status Date / Time Sulfa (Sulfonamide Allergy Unknown Verified 02/02/24 09:36 Antibiotics) - Vital Signs Vital Signs: Last Vital Signs Temp 98.2 F 02/03/24 05:08 Pulse 62 02/03/24 05:08 Resp 18 02/03/24 05:08 BP 127/65 02/03/24 05:08 Pulse Ox 97 02/03/24 05:08 O2 Flow Rate Intake & Output: Intake & Output 01/31/24 02/01/24 02/02/24 02/03/24 23:59 23:59 23:59 23:59 Intake Total 1000 870 Output Total 200 Balance 800 870 - Lab Results Result Diagrams: 02/03/24 07:39 02/02/24 09:42 - Consultation Note Consultation Note: General Surgery Consultation Note Assessment: 1) Gallstone pancreatitis - resolving clinically Recommendation: 1) Daily Lipase, CMP 2) VTEP - ambulate, SCDs, Heparin 5,000 U SQ Q 12 hrs 3) Clear liquid diet 4) Once the kamlesh-pancreatic inflammation resolves as determined by improvement in her LFT's and lipase, cholecystectomy will be offered, likely tomorrow. <><><><><><><><><><> Reason for Consultation Gallstone pancreatitis Chief Complaint Abdominal pain JOSAFAT Flowers is an 83 year old healthy female who developed the sudden onset of sharp, constant, non-radiating epigastric pain on Tuesday evening after ingesting a [employer] Dog. The pain persisted throughout the evening. She could do nothing to lessen or worsen the discomfort. She denies nausea or emesis. Her family brought her to her clinic PCP who referred her to the ED. Workup in the ED identified elevated LFT's and lipase and CT/US identified inflammation of the pancreas and edema of the gallbladder but there was no evidence of gallstones. MRCP was performed which did not identify choledocholithiasis but gallstones were identified in a gallbladder that had wall edema. The patient was admitted to the Medical Hospitalist service and the General Surgery Service was asked to assist in her evaluation and management. Since admission, her abdominal discomfort has completely resolved. Kristie denies prior episodes of epigastric or RUQ discomfort related to meal ingestion. She tells me she had a liver biopsy years ago for elevated LFT's which was thought due to her concurrent use of statins which she no longer takes. Past Medical History Statin induced hepatotoxicity Denies [place], CVA, TIA, Diabetes, COPD, HTN, Renal disease, Malignancy Past Surgical History T&A, Appendectomy, Hysterectomy Family History No major medical issues Social History Lives with 94 year old who has prostate cancer. Minimal alcohol use. Does not smoke. Current Medications No home meds Allergies Sulfa ROS Pertinent positives Abdominal pain All other reviewed systems negative Physical Examination Vital Signs: See "Vital Signs" section BMI: 23.8 GENERAL APPEARANCE: Normal development, normal body habitus, normal grooming PSYCHIATRIC: AAO; Comfortable EYES: Pupils equal, round and reactive to light, sclera anicteric EARS, NOSE, MOUTH, THROAT: Hearing normal, Oral mucous membranes moist and without lesions; NECK: No crepitus, lymphadenopathy, or thyromegaly LUNGS: Clear to auscultation without wheezing; No use of accessory muscles to breathe CARDIOVASCULAR: Heart-NSR with a II/ SE murmur; Palpable carotid arteries - no bruits; Femoral, Pedal pulses palpable; Peripheral edema absent ABD: Soft, scaphoid, minimal epigastrc discomfort with deep palpation, Active BS, No palpable masses. Infra-umbilical surgical scar: well healed and without hernia LYMPHATIC: Neck, Axillae, Groin palpable adenopathy EXTREMITIES: No clubbing, cyanosis, infections SKIN: Anicteric; No rashes, lesions, Ulcerations Labs See "Labs" section Lipase 2,748 T Vlad 1.6 AST 2,446; ALT 1,621; AP 243 Antibiotics N/A VTEP: Ordered Imaging CT/US/MRCP - all demonstrate mild pancreatic inflammation with gallbladder wall edema. No CBD dilation or intra-luminal stones. Gallstones seen in gallbladder on MRCP. All images were personally reviewed by me for this encounter. Nils Jones MD, FACS General Surgery Service [phone]
[2024-02-03 08:07] LABS: ALBUMIN 3.6 g/dL (3.2-5.5); ALBUMIN/GLOBULIN RATIO 1.4 (1.0-2.2); BILIRUBIN,TOTAL 0.9 mg/dL (0.2-1.0); CALCIUM 9.5 mg/dL (8.5-10.3); CREATININE 0.9 mg/dL (0.6-1.3); POTASSIUM 3.4 mmol/L (3.5-4.5); TOTAL PROTEIN 6.1 g/dL (6.4-8.9)
[2024-02-03] MEDS ORDERED: ENOXAPARIN 40 MG/0.4 ML SYRINGE SUBQ SCH (09:00)
--- NOTE | 2024-02-03 10:42 | PHARMACY PROGRESS NOTE ---
- Best Possible Medication History Admit Date and Time: 02/02/241811 Processed by: Nursing Medications reviewed in ED?: Yes As the person ultimately responsible for medication therapy, providers are able to order a medication from an existing home medication list in [facility] via the "Reconcile Routine" prior to Confirmation of that medication by service support representative. Such practice is discouraged except when the physician, in their clinical judgment, deems that a medical need exists for a medication without regard to previous use.
--- NOTE | 2024-02-03 11:39 | PROVIDER PROGRESS NOTE ---
Assessment/Plan - Problem List (1) Acute gallstone pancreatitis Assessment/Plan: - LFts and lipase have significnatly dropped since ED: * AST in ED = 2446, today = 597 * ALT in ED = 1621, today = 830 * ALT in ED = 243, today = 176 * Bilirubin in ED = 1.6, today = 0.9 (normal) * Total protein in ED = 6.7, today = 6.1 (only lab value increase) * Lipase in ED = 2748, today = 591 - Pt to be NPO * She may have sips and chips - Continue to monitor LFTs and lipase - General surgery consult done. cholecystitis cholecystectomy scheduled for tomorrow AM (2) Gallstone pancreatitis Assessment/Plan: As above in plan for Acute Gallstone Pancreatitis (3) Cholelithiasis and acute cholecystitis without obstruction Assessment/Plan: - MRCP showed no evidence of billary obstruction. - General surgery consult done and cholecystitis cholecystectomy scheduled for tomorrow AM (4) Elevated liver function tests Assessment/Plan: - LFT values are still elevated but have significantly decreased since ED, bilirubin is now normal. * AST in ED = 2446, today = 597 * ALT in ED = 1621, today = 830 * ALT in ED = 243, today = 176 * Bilirubin in ED = 1.6, today = 0.9 (normal) * Total protein in ED = 6.7, today = 6.1 (normal range 6.4 - 8.9) - Continue to check LFTs (5) Acute cholecystitis Assessment/Plan: - Significant improvement for Lipase, in ED = 2748, today = 591 - Continue to monitor (6) Anemia Qualifiers: Anemia type: other cause Assessment/Plan: - Normocytic anemia consistent with chronic disease - Heme labs have slightly lowered since ED - Pt does not report any lightheadeness/dizziness, HARDY, fatigue, SOB, elevated HR (7) Hyperglycemia Assessment/Plan: - No hx of diabetes, likely reactive to her acute illness. - Glucose today = normal at 79, yesterday in ED = 151 (8) Systolic murmur Assessment/Plan: - Pt has a known systolic heart murmur - No current cardiac issues - F/u w/PCP to determine if further workup might be necessary - Current Meds Current Meds: Current Medications Generic Name Dose Route Start Last Admin Trade Name Freq PRN Reason Stop Dose Admin Sodium Chloride 1,000 mls @ 100 mls/hr 02/02/24 19:00 02/03/24 10:58 Normal Saline 0.9% IV 100 mls/hr .Q10H CAROLYN Infusion Sodium Chloride 10 ml 02/02/24 18:12 02/02/24 19:59 Sodium Chloride Flush 0.9% 10 Ml Syringe IVP 10 ml PRN PRN Administration NEEDED PER PROVIDER ORDERS Sodium Chloride 10 ml 02/03/24 01:00 02/03/24 10:58 Sodium Chloride Flush 0.9% 10 Ml Syringe IVP 10 ml 0100,0900,1700 CAROLYN Administration - Lab Result Fish Bone Diagrams: 02/03/24 07:39 02/03/24 07:39 Subjective - Subjective Patient Reports: Resting Comfortably, No Complaints, Other (L bicep swelling from IV, woke up with semi-firm bicep, but has been reducing in size. Denies pain.) Objective Vital Signs: Vital Signs - 24 hr 02/02/24 02/02/24 02/02/24 13:00 15:00 17:00 Temperature Heart Rate 64 75 66 Heart Rate [ Brachial] Respiratory 15 20 19 Rate Blood Pressure 137/81 H 94/71 147/71 H Blood Pressure [Right Brachial artery] O2 Saturation 100 99 100 02/02/24 02/02/24 02/03/24 19:52 23:41 05:08 Temperature 36.7 C 36.6 C 36.8 C Heart Rate Heart Rate [ 73 68 62 Brachial] Respiratory 16 20 18 Rate Blood Pressure Blood Pressure 118/94 H 120/71 127/65 [Right Brachial artery] O2 Saturation 98 98 97 02/03/24 08:00 Temperature 36.6 C Heart Rate Heart Rate [ 65 Brachial] Respiratory 16 Rate Blood Pressure Blood Pressure 122/78 [Right Brachial artery] O2 Saturation 98 Oxygen O2 Source Room air I&O (Last 24 Hrs): Intake and Output Totals x24h 02/01/24 02/02/24 02/03/24 23:59 23:59 23:59 Intake Total 1000 1475 Output Total 200 250 Balance 800 1225 General: Alert, Oriented x3, Cooperative, No acute distress HEENT: Atraumatic, PERRLA, EOMI, Mucous membr. moist/pink Neck: Supple, No JVD, No thyromegaly Lymphatic: no adenopathy Neuro: Alert, CN 2-12 Grossly Intact, Oriented Times 3 Cardiovascular: Regular rate, Other (audible systolic murmur) Respiratory: Chest non-tender, No respiratory distress, Breath sounds nml Abdomen: Normal bowel sounds, Soft, No tenderness Extremities: No cyanosis, No edema, Normal pulses, No tenderness/swelling Skin: No rashes Comments/Notes: Pt has been doing well since admission, she has no complaints, slept well overnight, and was looking forward to being able to have a clear diet and drink broth. She has also been walking around the unit with her daughter, Rochelle, who has been with her most of the day. - Results Results: Laboratory Results WBC 7.1 x10^3/uL (4.8-10.8) 02/03/24 07:39 RBC 3.57 10^6/uL (4.20-5.40) L 02/03/24 07:39 Hgb 10.5 g/dL (12.0-16.0) L 02/03/24 07:39 Hct 32.8 % (37.0-47.0) L 02/03/24 07:39 MCV 91.9 fL (81.0-99.0) 02/03/24 07:39 MCH 29.4 pg (27.0-31.0) 02/03/24 07:39 MCHC 32.0 g/dL (32.0-36.0) 02/03/24 07:39 RDW 14.6 % (12.0-15.0) 02/03/24 07:39 Plt Count 204 10^3/uL (130-450) 02/03/24 07:39 MPV 10.7 fL (7.9-10.8) 02/03/24 07:39 Neut # (Auto) 5.6 10^3/uL (1.5-6.6) 02/03/24 07:39 Lymph # (Auto) 1.0 10^3/uL (1.5-3.5) L 02/03/24 07:39 [place] # (Auto) 0.2 10^3/uL (0.0-1.0) 02/03/24 07:39 Eos # (Auto) 0.3 10^3/uL (0.0-0.7) 02/03/24 07:39 Baso # (Auto) 0.0 10^3/uL (0.0-0.1) 02/03/24 07:39 Absolute Nucleated RBC 0.00 x10^3/uL 02/03/24 07:39 Nucleated RBC % 0.0 /100WBC 02/03/24 07:39 Sodium 138 mmol/L (135-145) 02/03/24 07:39 Potassium 3.4 mmol/L (3.5-4.5) L 02/03/24 07:39 Chloride 108 mmol/L (101-111) 02/03/24 07:39 Carbon Dioxide 25 mmol/L (21-32) 02/03/24 07:39 Anion Gap 5.0 (6-13) L 02/03/24 07:39 BUN 22 mg/dL (6-20) H 02/03/24 07:39 Creatinine 0.9 mg/dL (0.6-1.3) 02/03/24 07:39 Estimated GFR (MDRD) 60 (>89) L 02/03/24 07:39 Glucose 79 mg/dL (74-104) 02/03/24 07:39 Calcium 9.5 mg/dL (8.5-10.3) 02/03/24 07:39 Total Bilirubin 0.9 mg/dL (0.2-1.0) 02/03/24 07:39 AST 597 IU/L (10-42) H 02/03/24 07:39 ALT 830 IU/L (10-60) H 02/03/24 07:39 Alkaline Phosphatase 176 IU/L (42-121) H 02/03/24 07:39 Troponin I High Sens 6.0 ng/L (2.3-14.8) 02/02/24 09:42 Total Protein 6.1 g/dL (6.4-8.9) L 02/03/24 07:39 Albumin 3.6 g/dL (3.2-5.5) 02/03/24 07:39 Globulin 2.5 g/dL (2.1-4.2) 02/03/24 07:39 Albumin/Globulin Ratio 1.4 (1.0-2.2) 02/03/24 07:39 Lipase 591 U/L (11-82) H 02/03/24 07:39 Urine Color YELLOW 02/02/24 09:45 Urine Clarity CLOUDY (CLEAR) 02/02/24 09:45 Urine pH 7.0 PH (5.0-7.5) 02/02/24 09:45 Ur Specific [place] 1.025 (1.002-1.030) 02/02/24 09:45 Urine Protein 30 mg/dL (NEGATIVE) H 02/02/24 09:45 Urine Glucose (UA) NEGATIVE mg/dL (NEGATIVE) 02/02/24 09:45 Urine Ketones NEGATIVE mg/dL (NEGATIVE) 02/02/24 09:45 Urine Occult Blood TRACE-INTA (NEGATIVE) 02/02/24 09:45 Urine Nitrite POSITIVE (NEGATIVE) H 02/02/24 09:45 Urine Bilirubin NEGATIVE (NEGATIVE) 02/02/24 09:45 Urine Urobilinogen 0.2 (NORMAL) E.U./dL (NORMAL) 02/02/24 09:45 Ur Leukocyte Esterase TRACE (NEGATIVE) H 02/02/24 09:45 Urine RBC 0-5 /HPF (0-5) 02/02/24 09:45 Urine WBC 6-10 /HPF (0-5) H 02/02/24 09:45 Ur Squamous Epith Cells MANY Squamous (<= Few) H 02/02/24 09:45 Urine Bacteria Many /HPF (None Seen) H 02/02/24 09:45 Ur Microscopic Review INDICATED 02/02/24 09:45 Urine Culture Comments NOT INDICATED 02/02/24 09:45 Sepsis Event Note (H) - Evaluation Current Stage of Sepsis: Ruled out
[2024-02-03] MEDS: POTASSIUM CHLOR 10 MEQ/100 ML 10 MEQ/100 ML BAG IV SCH (13:00)
[2024-02-03 15:04] LABS: BILIRUBIN,URINE NEGATIVE (NEGATIVE); GLUCOSE, URINE (UA) NEGATIVE (NEGATIVE); KETONES,URINE (UA) TRACE mg/dL (NEGATIVE); LEUKOCYTE ESTERASE, URINE NEGATIVE (NEGATIVE); NITRITE,URINE POSITIVE (NEGATIVE); OCCULT BLOOD,URINE NEGATIVE (NEGATIVE); PROTEIN,URINE NEGATIVE (NEGATIVE); UROBILINOGEN,URINE 0.2 (NORMAL) E.U./dL (NORMAL)
[2024-02-03 15:09] LABS: CLARITY,URINE HAZY (CLEAR)
--- NOTE | 2024-02-03 15:17 | PROVIDER PROGRESS NOTE ---
Progress Note General Surgery Progress Note Kristie remains asymptomatic. She is tolerating clear liquids and is ambulatory. Her serum lipase has decreased to the 500 range, her T Bili is normal and her LFT's are decreasing as well. Her CBC is normal. A: Gallstone pancreatitis with clinical and chemical evidence of resolving pa ncreatic inflammation. P: Laparoscopic cholecystectomy, possible open cholecystectomy tomorrow at [address]. [address] an order for 1 dose of Ancef to be administered 30 min pre- op (by our anesthesia team). She should be NPO after midnight. I reviewed the procedure, risks, benefits with the patient and her daughter this afternoon. All questions have been answered. The Radiology departments is aware of the procedure as an IOC may be required. Nils Jones MD, FACS General Surgery Service
[2024-02-03 15:19] LABS: BACTERIA,URINE Many /HPF (None Seen); RBC,URINE 0-5 /HPF (0-5); SQUAMOUS EPITHELIAL CELL,UR RARE Squamous (<= Few); WBC,URINE 0-3 /HPF (0-5)
--- NOTE | 2024-02-04 06:59 | OPERATIVE REPORT ---
Operative Report - General Admit Date: 02/02/24 - Other Other Information/Narrative: PROCEDURE DATE: 02/04/2024 PREOPERATIVE DIAGNOSIS: Gallstone pancreatitis. POSTOPERATIVE DIAGNOSIS: Gallstone pancreatitis NAME OF PROCEDURE: Laparoscopic cholecystectomy SURGEON: Nils Jones MD, FACS SOCIAL MEDIA CONTENT MANAGER: CARLOS Silva (student) ANESTHESIA: General endotracheal ESTIMATED BLOOD LOSS: 30 mL DRAINS: None SPECIMEN: Gallbladder/Stones COMPLICATIONS: None DESCRIPTION OF OPERATIVE FINDINGS: Mild gallbladder edema, gallstones, normal cystic duct; The omentum below the umbilicus was adherent to the lower abdominal wall with adhesions. DESCRIPTION OF OPERATION FOLLOWS: After consent for the procedure was obtained, the patient was brought to the operating room where in the supine position general endotracheal anesthesia was administered. The abdomen was prepped with alcohol-free chloroprep and draped in a sterile fashion after a surgical time-out was performed indicating the patient and the procedure to be performed. Pneumoperitoneum was achieved through a subumbilical incision using a Kelli cannula and an open technique. A 10 mm non-cutting laparoscopic port was placed in the sub-xiphoid region and two 5 mm noncutting ports were placed in the right upper quadrant; one in the mid-clavicular line and one in the anterior axillary line. Each of the port sites were infiltrated with 1% Lidocaine with epinephrine in a 50/50 mix with 1/4% Marcaine mixture prior making the incisions. The patient was placed in the steep reverse Trendelenburg position and rolled to the left. Inspection of the right upper quadrant revealed the above noted findings. The gallbladder was grasped on the fundus and retracted superiorly and anteriorly. Adhesions between the gallbladder and omentum were gently teased off the anterior wall of the gallbladder and then the neck of the gallbladder was identified. The neck was grasped and retracted laterally. The cystic duct was identified as it coursed from the gallbladder toward the common duct. The cystic artery was similarly identified. The critical view was achieved once the liver bed was visualized behind the cystic artery and cystic duct. Because the patient's LFT's had nearly normalized and her MRCP did not identify a dilated CBD or choledocholithiasis, I decided not to perform an IOC. The cystic duct and cystic artery were clipped proximally and distally and transected. The gallbladder was then removed from the liver bed using electrocautery and brought out through the subxiphoid port using an endo-catch device. Reinspection of the right upper quadrant revealed no evidence of bleeding or bile leakage from the previous dissection site. The right upper quadrant was irrigated with warm sterile saline. The irrigant was aspirated. A search was made for sponges, packs, instruments, and needles. None were found. The sponge, pack, instrument, and needle counts were relayed to me as being correct. The sub-xiphoid port site fascia was closed with a 2-0 Vicryl under direct vision using an endo-close device. The pneumoperitoneum was released. The laparoscopic port sleeves were removed and there was no evidence of bleeding from the laparoscopic port sleeve sites upon release of the pneumoperitoneum. A search was made for sponges, packs, instruments, and needles. None were found. The sponge, pack, instrument, and needle counts were relayed to me as being correct. The Kelli cannula was removed and the patient was placed into the supine position. The subumbilical incision was closed with 2-0 Vicryl for the linea alba. The skin was closed with interrupted 4-0 Monocryl in a subcuticular fashion with Steri-Strips to reinforce the epidermis. Dressings were placed. The patient tolerated the procedure well and was brought to the Recovery Room with stable signs.
[2024-02-04] MEDS ORDERED: ONDANSETRON 4 MG/2 ML VIAL ONE (07:34)
[2024-02-04] MEDS ORDERED: PROPOFOL 200 MG/20 ML VIAL IVP ONE (07:34)
[2024-02-04] MEDS ORDERED: fentaNYL 100 MCG/2 ML VIAL ONE ×2 (07:34→09:16)
[2024-02-04] MEDS ORDERED: ROCURONIUM 50 MG/5 ML VIAL ONE (07:34)
[2024-02-04] MEDS ORDERED: LIDOCAINE 1%-EPI 1:100000 20 ML MDV ONE (07:43)
[2024-02-04] MEDS ORDERED: iohexoL-240 10 ML VIAL IVP ONE (07:43)
[2024-02-04] MEDS ORDERED: BUPIVACAINE 0.25% PF 30 ML VIAL ONE (07:43)
[2024-02-04] MEDS ORDERED: ceFAZolin 1 GM VIAL ONE (08:51)
[2024-02-04] MEDS: ceFAZolin (2G) 2 GM in SODIUM CHLORIDE 0.9% MINIBAG 100 ML IV ONE (09:04)
--- NOTE | 2024-02-04 09:07 | ANESTHESIA ---
Pre-Anesthesia VS, & Labs - Diagnosis gallstone pancreatitis - Procedure lap donte Vital Signs: Temp Pulse Resp BP Pulse Ox O2 Flow Rate 37.0 C 60 16 143/76 H 94 02/04/24 07:36 02/04/24 07:36 02/04/24 07:36 02/04/24 07:36 02/04/24 07:36 Height: 5 ft 3 in Weight (kg): 61 kg Body Mass Index: 23.8 BMI Classification: Normal - NPO >8 hours - Is Patient ?: No - Lab Results Current Lab Results: Laboratory Tests 02/03/24 07:39: Sodium 138, Potassium 3.4 L, Chloride 108, Carbon Dioxide 25, Anion Gap 5.0 L, BUN 22 H, Creatinine 0.9, Estimated GFR (MDRD) 60 L, Glucose 79, Calcium 9.5, Total Bilirubin 0.9, AST 597 H, ALT 830 H, Alkaline Phosphatase 176 H, Total Protein 6.1 L, Albumin 3.6, Globulin 2.5, Albumin/Globulin Ratio 1.4, Lipase 591 H 02/03/24 07:39: WBC 7.1, RBC 3.57 L, Hgb 10.5 L, Hct 32.8 L, MCV 91.9, MCH 29.4, MCHC 32.0, RDW 14.6, Plt Count 204, MPV 10.7, Neut # (Auto) 5.6, Lymph # (Auto) 1.0 L, [place] # (Auto) 0.2, Eos # (Auto) 0.3, Baso # (Auto) 0.0, Absolute Nucleated RBC 0.00, Nucleated RBC % 0.0 02/02/24 09:42: Troponin I High Sens 6.0 02/02/24 09:42: Sodium 135, Potassium 3.6, Chloride 101, Carbon Dioxide 28, Anion Gap 6.0, BUN 27 H, Creatinine 0.9, Estimated GFR (MDRD) 60 L, Glucose 151 H, Calcium 10.3, Total Bilirubin 1.6 H, AST 2446 H, ALT 1621 H, Alkaline Phosphatase 243 H, Total Protein 6.7, Albumin 4.1, Globulin 2.6, Albumin/Globulin Ratio 1.6, Lipase 2748 H 02/02/24 09:42: WBC 10.0, RBC 3.69 L, Hgb 11.0 L, Hct 33.7 L, MCV 91.3, MCH 29.8, MCHC 32.6, RDW 14.3, Plt Count 223, MPV 10.4, Neut # (Auto) 9.2 H, Lymph # (Auto) 0.4 L, [place] # (Auto) 0.3, Eos # (Auto) 0.0, Baso # (Auto) 0.0, Absolute Nucleated RBC 0.00, Nucleated RBC % 0.0 Fish Bones: 02/03/24 07:39 02/03/24 07:39 Home Medications and Allergies Active Medications Sodium Chloride (Normal Saline 0.9%) 1,000 mls @ 100 mls/hr IV .Q10H [facility] Last Infusion: 02/04/24 05:40 Dose: 100 mls/hr Morphine Sulfate (Morphine 2 Mg/Ml Carpuject) 2 mg IVP Q2HR PRN PRN Reason: Pain 8 to 10 Ondansetron HCl (Ondansetron 4 Mg/2 Ml Vial) 4 mg IVP Q6HR PRN PRN Reason: Nausea / Vomiting Sodium Chloride (Sodium Chloride Flush 0.9% 10 Ml Syringe) 10 ml IVP PRN PRN PRN Reason: NEEDED PER PROVIDER ORDERS Last Admin: 02/02/24 19:59 Dose: 10 ml Sodium Chloride (Sodium Chloride Flush 0.9% 10 Ml Syringe) 10 ml IVP 0100,0900,1700 [facility] Last Admin: 02/03/24 23:40 Dose: Not Given No Known Home Medications 08/23/23 Allergies/Adverse Reactions: Allergies Allergy/AdvReac Type Severity Reaction Status Date / Time Sulfa (Sulfonamide Allergy Unknown Verified 02/02/24 09:36 Antibiotics) Anes History & Medical History - Anesthetic History Anesthesia Complications: reports: No previous complications Family history of Anesthesia Complications: Denies Family history of Malignant Hyperthermia: Denies - Medical History Cardiovascular: reports: Murmur Pulmonary: reports: None Gastrointestinal: reports: None, Pancreatitis Urinary: reports: None Neuro: reports: None Musculoskeletal: reports: None Endocrine/Autoimmune: reports: None Skin: reports: None Smoking Status: Never smoker Psychosocial: reports: No issues indicated History of Cancer?: No - Surgical History General: reports: Appendectomy Eyes Ears Nose Throat (EENT): reports: Tonsil/Adenoidectomy Gynecologic: reports: Hysterectomy, Other Exam General: Alert, Oriented x3, Cooperative Dental: WNL Mouth Openin Fingerbreadth Neck Mobility: Normal Mallampati classification: II Thyromental Distance: 4-6 cm Respiratory: Lungs clear Cardiovascular: Regular rate Plan Anesthesia Type: General Consent for Procedure(s) Verified and Reviewed: Yes Code Status: Attempt Resuscitation ASA classification: 2-Mild systemic disease Is this case an emergency?: No
[2024-02-04] MEDS ORDERED: ATROPINE ABBOJECT 1 MG/10 ML SYRINGE IVP PRN (09:08)
[2024-02-04] MEDS ORDERED: METOCLOPRAMIDE 10 MG/2 ML VIAL IVP PRN (09:08)
[2024-02-04] MEDS ORDERED: ePHEDrine 50 MG/ML VIAL IVP PRN (09:08)
[2024-02-04] MEDS ORDERED: NALOXONE 0.4 MG/ML VIAL IVP PRN (09:08)
[2024-02-04] MEDS ORDERED: MORPHINE 2 MG/ML CARPUJECT IVP PRN (09:08)
[2024-02-04] MEDS ORDERED: fentaNYL 100 MCG/2 ML VIAL IVP PRN (09:08)
[2024-02-04] MEDS ORDERED: ONDANSETRON 4 MG/2 ML VIAL IVP PRN ×2 (09:08→10:11)
[2024-02-04] MEDS ORDERED: HYDROmorphone 0.5 MG/0.5 ML SYRINGE IVP PRN ×2 (09:08→10:16)
[2024-02-04] MEDS ORDERED: ACETAMINOPHEN 1,000 MG/100 ML 1,000 MG/100 ML BAG IV ONE (09:11)
[2024-02-04] MEDS: BUPIVACAINE 0.25% PF 30 ML VIAL SUBQ ONE ×2 (09:20)
[2024-02-04] MEDS: LIDOCAINE 1%-EPI 1:100000 50 ML VIAL SUBQ ONE ×2 (09:21)
[2024-02-04] MEDS ORDERED: SUGAMMADEX 200 MG/2 ML VIAL IVP ONE (09:43)
[2024-02-04] MEDS: LACTATED RINGERS 1,000 ML IV ONE (10:03)
[2024-02-04] MEDS ORDERED: oxyCODONE 5 MG TABLET PO PRN (10:11)
[2024-02-04] MEDS ORDERED: SODIUM CHLORIDE FLUSH 0.9% 10 ML SYRINGE IVP PRN (10:11)
--- NOTE | 2024-02-04 10:30 | ANESTHESIA POST OP EVALUATION ---
Anesthesia Post Eval - Post Anesthesia Eval Vitals: Last Vital Signs Temp 37 C 02/04/24 10:25 Pulse 56 L 02/04/24 10:25 Resp 20 02/04/24 10:25 BP 144/73 H 02/04/24 10:25 Pulse Ox 97 02/04/24 10:25 O2 Flow Rate CV Function Including HR & BP: Stable Pain Control: Satisfactory Nausea & Vomiting: Negative Mental Status: Baseline Respiratory Status: Airway Patent Hydration Status: Satisfactory Anesthesia Complications: None
[2024-02-04] MEDS: cefTRIAXone 1 GM in SODIUM CHLORIDE 0.9% MINIBAG 100 ML IV SCH (10:45)
[2024-02-04] MEDS: KETOROLAC 15 MG/ML VIAL IVP SCH (10:46)
[2024-02-04] MEDS: SODIUM CHLORIDE 0.9% 1,000 ML IV SCH (10:46)
[2024-02-04] MEDS ORDERED: CIPROFLOXACIN 400 MG/200 ML 400 MG/200 ML BAG IV SCH (11:00)
[2024-02-04] MEDS ORDERED: ACETAMINOPHEN 325 MG TABLET PO SCH (12:00)
[2024-02-04 13:06] LABS: HCT - HEMATOCRIT 27.4 % (37.0-47.0); MEAN CORPUSCULAR HGB CONC 32.8 g/dL (32.0-36.0); MEAN CORPUSCULAR VOLUME 91.3 fL (81.0-99.0); MEAN PLATELET VOLUME 10.1 fL (7.9-10.8); RED CELL DISTRIBUTION WIDTH 14.6 % (12.0-15.0); WHITE BLOOD COUNT 6.8 x10^3/uL (4.8-10.8)
[2024-02-04 13:22] LABS: ALBUMIN 3.2 g/dL (3.2-5.5); ALBUMIN/GLOBULIN RATIO 1.5 (1.0-2.2); ALKALINE PHOSPHATASE 126 IU/L (42-121); ALT ALANINE AMINOTRANSFERASE 407 IU/L (10-60); AST ASPARTATE AMINOTRANSFERASE 187 IU/L (10-42); BILIRUBIN,TOTAL 0.4 mg/dL (0.2-1.0); BUN - BLOOD UREA NITROGEN 15 mg/dL (6-20); CALCIUM 8.6 mg/dL (8.5-10.3); CARBON DIOXIDE - CO2 19 mmol/L (21-32); CHLORIDE 110 mmol/L (101-111); CREATININE 0.8 mg/dL (0.6-1.3); GFR - MDRD 69 (>89); GLUCOSE 103 mg/dL (74-104); IONIZED CALCIUM IF INDICATED NO; LIPASE 56 U/L (11-82); POTASSIUM 3.9 mmol/L (3.5-4.5); SODIUM 136 mmol/L (135-145); TOTAL PROTEIN 5.4 g/dL (6.4-8.9)
[2024-02-04] MEDS: ACETAMINOPHEN 325 MG TABLET PO SCH (14:04)
--- NOTE | 2024-02-04 16:04 | PROVIDER PROGRESS NOTE ---
Assessment/Plan - Problem List (1) Gallstone pancreatitis Assessment/Plan: - Lap. cholecystectomy done this AM w/Dr. Jones, no complications - Orders per Dr. Jones: * Full liquid diet today, normal diet starting tomorrow AM * Ambulate w/assistance * IV to SL * Post-op nursing assistance tonight * D/c in AM if no new issues arise - LFTs and lipase have significantly dropped since ED: * AST in ED = 2446, today = 187 * ALT in ED = 1621, today = 407 * Alk Phos in ED = 243, today = 126 * Bilirubin in ED = 1.6, today = 0.4 (normal) * Total protein in ED = 6.7, today = 5.4 - Lipase in ED = 2748, today = 56 - Continue to monitor LFTs and lipase (2) Cholelithiasis and acute cholecystitis without obstruction Assessment/Plan: - Lap. cholecystectomy done this AM, no complications - Prior MRCP showed no evidence of billary obstruction (3) Elevated liver function tests Assessment/Plan: - Status post-lap cholecystectomy - LFTs continuring to improve: * AST in ED = 2446, today = 187 * ALT in ED = 1621, today = 407 * Alk Phos in ED = 243, today = 126 * Bilirubin in ED = 1.6, today = 0.4 (normal) * Total protein in ED = 6.7, today = 5.4 - Continue to monitor until d/c (4) Anemia Qualifiers: Anemia type: other cause Other causes of anemia: other cause, not c lassified Qualified Code(s): D64.89 - Other specified anemias Assessment/Plan: - Lap cholecystectomy done this AM, heme labs consistent with procedure RBC post-op = 3.00 Hgb post-op = 9.0 Hct post-op = 27.4 - Pt dont experiencing any symptoms of lightheadedness/dizziness, HARDY, fatigue, SOB, elevated HR (5) Hyperglycemia Assessment/Plan: - Stable, normal glucose values since yesterday * Glucose today = 103 (6) Systolic murmur Assessment/Plan: - No change - Pt has a known systolic heart murmur - No current cardiac issues - Current Meds Current Meds: Current Medications Generic Name Dose Route Start Last Admin Trade Name Freq PRN Reason Stop Dose Admin Acetaminophen 650 mg 02/04/24 14:00 02/04/24 14:04 Acetaminophen 325 Mg Tablet PO Not Given Q6H CAROLYN Ceftriaxone Sodium 1 gm/ 100 mls @ 200 mls/hr 02/04/24 11:00 02/04/24 11:15 Sodium Chloride IV Infused DAILY CAROLYN Infusion Sodium Chloride 1,000 mls @ 100 mls/hr 02/04/24 11:00 02/04/24 10:46 Normal Saline 0.9% IV 02/04/24 20:59 100 mls/hr .Q10H CAROLYN Administration Ketorolac Tromethamine 15 mg 02/04/24 11:00 02/04/24 10:46 Ketorolac 15 Mg/Ml Vial IVP 02/05/24 11:01 15 mg Q6H CAROLYN Administration - Lab Result Fish Bone Diagrams: 02/04/24 13:00 02/04/24 13:00 Subjective - Subjective Patient Reports: Feeling Better, Resting Comfortably, No Complaints Objective Vital Signs: Vital Signs - 24 hr 02/03/24 02/04/24 02/04/24 23:52 07:36 10:03 Temperature 36.7 C 37.0 C 37.3 C Heart Rate 68 Heart Rate [ 66 60 Brachial] Respiratory 20 16 16 Rate Blood Pressure 144/77 H Blood Pressure [Left Brachial artery] Blood Pressure 129/67 143/76 H [Right Brachial artery] O2 Saturation 97 94 100 02/04/24 02/04/24 02/04/24 10:09 10:11 10:14 Temperature 36.7 C Heart Rate 68 64 Heart Rate [ 59 L Brachial] Respiratory 15 18 16 Rate Blood Pressure 141/71 H 148/69 H Blood Pressure 129/71 [Left Brachial artery] Blood Pressure [Right Brachial artery] O2 Saturation 97 100 97 02/04/24 02/04/24 02/04/24 10:20 10:25 10:41 Temperature 37 C 36.6 C Heart Rate 60 56 L Heart Rate [ 52 L Brachial] Respiratory 14 20 18 Rate Blood Pressure 143/71 H 144/73 H Blood Pressure [Left Brachial artery] Blood Pressure 160/78 H [Right Brachial artery] O2 Saturation 100 97 99 02/04/24 02/04/24 02/04/24 12:41 14:41 15:28 Temperature 36.8 C 37.0 C 36.9 C Heart Rate Heart Rate [ 60 81 63 Brachial] Respiratory 18 18 18 Rate Blood Pressure Blood Pressure 151/70 H 124/84 H 109/76 [Left Brachial artery] Blood Pressure [Right Brachial artery] O2 Saturation 97 98 97 Oxygen O2 Source Room air I&O (Last 24 Hrs): Intake and Output Totals x24h 02/02/24 02/03/24 02/04/24 23:59 23:59 23:59 Intake Total 1000 4033.75 2192.50 Output Total 423 626 8277 Balance 800 3658.75 767.50 General: Alert, Oriented x3, Cooperative, No acute distress HEENT: Atraumatic, PERRLA, EOMI, Mucous membr. moist/pink (some purple spots on tongue and lips, likely from intra-op intubation.) Neck: Supple, No JVD, No thyromegaly, No LAD Lymphatic: no adenopathy Neuro: Alert, CN 2-12 Grossly Intact, Oriented Times 3 Cardiovascular: Regular rate, Other (audible systolic murmur) Respiratory: Chest non-tender, No respiratory distress, Breath sounds nml Abdomen: Normal bowel sounds, Soft Extremities: No clubbing, No cyanosis, No edema, No tenderness/swelling Skin: No rashes Comments/Notes: Ms. Flowers is being her normal, very pleasant self and doing well post-op, no complaints, just moderate abd tenderness but no sharp pains. She has been able to get up and use the bathroom - urinating normally, denies dysuria or hematuria. She had a BM of yellow fluid and reports flatulence. She has been on a clear diet since yesterday but said she is "brothed out" and is looking forw celestina to anything more substantial, even pudding. She is not having hunger pangs but feels a little lightheaded - which what she normally feels when she is hungry. She has plans on taking a walking around the unit with her daughter shortly. - Results Results: Laboratory Results WBC 6.8 x10^3/uL (4.8-10.8) 02/04/24 13:00 RBC 3.00 10^6/uL (4.20-5.40) L 02/04/24 13:00 Hgb 9.0 g/dL (12.0-16.0) L 02/04/24 13:00 Hct 27.4 % (37.0-47.0) L 02/04/24 13:00 MCV 91.3 fL (81.0-99.0) 02/04/24 13:00 MCH 30.0 pg (27.0-31.0) 02/04/24 13:00 MCHC 32.8 g/dL (32.0-36.0) 02/04/24 13:00 RDW 14.6 % (12.0-15.0) 02/04/24 13:00 Plt Count 177 10^3/uL (130-450) 02/04/24 13:00 MPV 10.1 fL (7.9-10.8) 02/04/24 13:00 Neut # (Auto) 5.6 10^3/uL (1.5-6.6) 02/03/24 07:39 Lymph # (Auto) 1.0 10^3/uL (1.5-3.5) L 02/03/24 07:39 [place] # (Auto) 0.2 10^3/uL (0.0-1.0) 02/03/24 07:39 Eos # (Auto) 0.3 10^3/uL (0.0-0.7) 02/03/24 07:39 Baso # (Auto) 0.0 10^3/uL (0.0-0.1) 02/03/24 07:39 Absolute Nucleated RBC 0.00 x10^3/uL 02/03/24 07:39 Nucleated RBC % 0.0 /100WBC 02/03/24 07:39 Sodium 136 mmol/L (135-145) 02/04/24 13:00 Potassium 3.9 mmol/L (3.5-4.5) 02/04/24 13:00 Chloride 110 mmol/L (101-111) 02/04/24 13:00 Carbon Dioxide 19 mmol/L (21-32) L 02/04/24 13:00 Anion Gap 7.0 (6-13) 02/04/24 13:00 BUN 15 mg/dL (6-20) 02/04/24 13:00 Creatinine 0.8 mg/dL (0.6-1.3) 02/04/24 13:00 Estimated GFR (MDRD) 69 (>89) L 02/04/24 13:00 Glucose 103 mg/dL (74-104) 02/04/24 13:00 Calcium 8.6 mg/dL (8.5-10.3) 02/04/24 13:00 Ionized Calcium NO 02/04/24 13:00 Total Bilirubin 0.4 mg/dL (0.2-1.0) 02/04/24 13:00 AST 187 IU/L (10-42) H 02/04/24 13:00 ALT 407 IU/L (10-60) H 02/04/24 13:00 Alkaline Phosphatase 126 IU/L (42-121) H 02/04/24 13:00 Troponin I High Sens 6.0 ng/L (2.3-14.8) 02/02/24 09:42 Total Protein 5.4 g/dL (6.4-8.9) L 02/04/24 13:00 Albumin 3.2 g/dL (3.2-5.5) 02/04/24 13:00 Globulin 2.2 g/dL (2.1-4.2) 02/04/24 13:00 Albumin/Globulin Ratio 1.5 (1.0-2.2) 02/04/24 13:00 Lipase 56 U/L (11-82) 02/04/24 13:00 Urine Color YELLOW 02/03/24 14:50 Urine Clarity HAZY (CLEAR) 02/03/24 14:50 Urine pH 6.0 PH (5.0-7.5) 02/03/24 14:50 Ur Specific [place] 1.010 (1.002-1.030) 02/03/24 14:50 Urine Protein NEGATIVE mg/dL (NEGATIVE) 02/03/24 14:50 Urine Glucose (UA) NEGATIVE mg/dL (NEGATIVE) 02/03/24 14:50 Urine Ketones TRACE mg/dL (NEGATIVE) 02/03/24 14:50 Urine Occult Blood NEGATIVE (NEGATIVE) 02/03/24 14:50 Urine Nitrite POSITIVE (NEGATIVE) H 02/03/24 14:50 Urine Bilirubin NEGATIVE (NEGATIVE) 02/03/24 14:50 Urine Urobilinogen 0.2 (NORMAL) E.U./dL (NORMAL) 02/03/24 14:50 Ur Leukocyte Esterase NEGATIVE (NEGATIVE) 02/03/24 14:50 Urine RBC 0-5 /HPF (0-5) 02/03/24 14:50 Urine WBC 0-3 /HPF (0-5) 02/03/24 14:50 Ur Squamous Epith Cells RARE Squamous (<= Few) 02/03/24 14:50 Urine Bacteria Many /HPF (None Seen) H 02/03/24 14:50 Ur Microscopic Review INDICATED 02/03/24 14:50 Urine Culture Comments INDICATED 02/03/24 14:50 Sepsis Event Note (H) - Evaluation Current Stage of Sepsis: Ruled out
[2024-02-04] MEDS: LACTATED RINGERS 1,000 ML IV SCH (16:20)
--- NOTE | 2024-02-04 17:02 | PROVIDER PROGRESS NOTE ---
Progress Note General Surgery Progress Note S: Kristie has had an uneventful afternoon. She has ambulated in the room, is passing urine, has tolerated clear liquids, and her abdominal discomfort is controlled with oral non-narcotic medication. She denies nausea or vomiting. O: VSS, afeb; Lungs clear; Heart - NSR, 2/6 KAMI; Abd - soft, port site dressings clean and dry. AM LFT's decreasing; Lipase normal A: Excellent post-op course s/p laparoscopic cholecystectomy for gallstone pancreatitis. Recommendations: 1) Advance to full liquid diet tonight and a general diet fo breakfast 2) Ambulate with assistance in hallway 3) IV to SL 4) Plan discharge in the morning if no new issues as I think she would benefit from post-op nursing assistance in the hospital tonight. Nils Jones MD, FACS General Surgery Service
[2024-02-04] MEDS: SODIUM CHLORIDE FLUSH 0.9% 10 ML SYRINGE IVP SCH (17:03)
[2024-02-04] MEDS: HEPARIN 5,000 UNIT/ML VIAL SUBQ SCH (21:50)
[2024-02-05 06:37] LABS: BASOPHILS % (AUTO) 0.5 %; EOSINOPHILS # (AUTO) 0.2 10^3/uL (0.0-0.7); EOSINOPHILS % (AUTO) 5.2 %; HCT - HEMATOCRIT 27.2 % (37.0-47.0); HGB - HEMOGLOBIN 9.1 g/dL (12.0-16.0); LYMPHOCYTES # (AUTO) 0.9 10^3/uL (1.5-3.5); LYMPHOCYTES % (AUTO) 20.6 %; MEAN CORPUSCULAR HEMOGLOBIN 30.4 pg (27.0-31.0); MEAN CORPUSCULAR HGB CONC 33.5 g/dL (32.0-36.0); MEAN PLATELET VOLUME 9.8 fL (7.9-10.8); MONOCYTES # (AUTO) 0.3 10^3/uL (0.0-1.0); MONOCYTES % (AUTO) 7.5 %; NEUTROPHILS # (AUTO) 2.9 10^3/uL (1.5-6.6); PLT - PLATELET COUNT 184 10^3/uL (130-450); RED BLOOD COUNT 2.99 10^6/uL (4.20-5.40); RED CELL DISTRIBUTION WIDTH 14.5 % (12.0-15.0); WHITE BLOOD COUNT 4.4 x10^3/uL (4.8-10.8)
[2024-02-05 07:02] LABS: ALBUMIN 3.1 g/dL (3.2-5.5); ALBUMIN/GLOBULIN RATIO 1.6 (1.0-2.2); ALKALINE PHOSPHATASE 101 IU/L (42-121); ALT ALANINE AMINOTRANSFERASE 262 IU/L (10-60); AST ASPARTATE AMINOTRANSFERASE 99 IU/L (10-42); BILIRUBIN,TOTAL 0.4 mg/dL (0.2-1.0); BUN - BLOOD UREA NITROGEN 12 mg/dL (6-20); CALCIUM 8.9 mg/dL (8.5-10.3); CARBON DIOXIDE - CO2 23 mmol/L (21-32); CHLORIDE 112 mmol/L (101-111); GFR - MDRD 53 (>89); GLUCOSE 96 mg/dL (74-104); IONIZED CALCIUM IF INDICATED NO; LIPASE 28 U/L (11-82); POTASSIUM 4.1 mmol/L (3.5-4.5); SODIUM 139 mmol/L (135-145); TOTAL PROTEIN 5.1 g/dL (6.4-8.9)
--- NOTE | 2024-02-05 07:26 | Discharge Plan ---
Discharge Plan Problem Reviewed?: Yes Disposition: Home, Self Care Condition: Stable Prescriptions: Cefdinir 300 mg PO BID #4 cap Diet: Regular Activity Restrictions: Balance activity with res Instruction Topics: Cholecystectomy Laparoscopic Health Concerns: You will need to follow up with general surgery and they will call you for an appointment. Please call your ice cream freezer helper. You will need a follow up appointment in 1-2 weeks and will need your liver function tests rechecked Assessment: 1. Gallstone pancreatitis 2. Cholelithiasis and acute cholecystitis without obstruction 3. Elevated liver function testimproving 4. Anemia 5. Hyperglycemia, reactiveresolved 6. Systolic murmur No Smoking: If you smoke, Please STOP! Call for help. Follow-up with: Violet Reyes ARNP [Primary Care Provider] - 1 Week (Follow-up in 1 to 2 weeks)
--- NOTE | 2024-02-05 07:35 | PROVIDER PROGRESS NOTE ---
Progress Note General Surgery Progress Note POD # 1, Laparoscopic Cholecystectomy for gallstone pancreatitis S: No post op discomfort, ambulatory, no n/v, slight drainage from umbilicus controlled with dressing change O: VSS, afeb; Abdomen soft, dressings dry, no drainage this morning. Minimal tenderness Labs: LFT's near normal, Lipase normal this morning H&H 27/9.1 Assessment: 1) Clinical and chemical evidence of resolution of her gallstone pancreatitis. No immediate post-op complications 2) Post-op anemia, stable. No treatment required. Recommendation: Discharge to home this morning; FU 7-10 days in surgery clinic Discharge Instructions: 1) Diet as tolerated 2) Activity as tolerated. Be active, but if it hurts to do, don't do it 3) May shower tomorrow. Remove brown band aids and wash gently over abdomen. Leave white steri-strips in place. May cover port sites with band aides when dry to capture any drainage from wounds. 4) Meds: Tylenol 650 mg PO QID and Ibuprofen 400 mg PO TID with meals x 3 days, then prn 5) The clinic staff will contact her Tuesday or Tuesday to arrange a follow- up appointment 6) If she has questions or concerns, contact the clinic at or the Hospital Emergency Room Nils Jones MD, FACS General Surgery Service
--- NOTE | 2024-02-05 09:01 | DISCHARGE SUMMARY ---
"Discharge Summary Admit Date: 02/02/24 Discharge Date: 02/05/24 Discharging Provider: Josefina Olivo PA-C Primary Care Provider: Violet LANDIS Code Status: Attempt Resuscitation Condition at Discharge: Good Discharge Disposition: 01 Home, Self Care - DIAGNOSES Admission Diagnoses: 1. Gallstone pancreatitis The patient presented to the emergency room with evidence of gallstone pancreatitis. She was initially made n.p.o. Lipase was trended and normalized. Gallstone pancreatitis has resolved. 2. Cholelithiasis and acute cholecystitis without obstruction After the patient's gallstone pancreatitis resolved she went to the operating room on 02/04/2024 for a laparoscopic cholecystectomy. She tolerated the procedure well. Her diet has been advanced without difficulty. Per general surgery she is ready to go home today. His office will call her next week with a follow-up appointment. She should balance activity with rest and she has no dietary restrictions. 3. Elevated liver function testimproving She had markedly elevated transaminases that have trended down nicely. They are not yet quite back to normal. She will need to follow-up with her primary care physician and have a repeat liver panel at that appointment. 4. Anemia At the time of admission she had a mild normocytic anemia. Her hemoglobin did drift down over the course of this hospitalization most likely due to hemodilution from IV fluids. Hemoglobin is stable on the day of discharge. 5. Hyperglycemia, reactiveresolved Reactive to her gallstone pancreatitis. Resolved 6. Systolic murmur The patient states that she has had a murmur for quite some time. She cannot recall having an echocardiogram. Will defer to her outpatient provider but would consider outpatient echocardiogram to evaluate. 7. UTI The patient was rather asymptomatic but urine culture grew greater than 100,000 colonies of gram-negative rods. She received one-time dose of IV Rocephin and will complete 2 more days of therapy with p.o. cefdinir. - HPI History of Present Illness: The patient is an extremely pleasant 83-year-old female with no significant past medical history. She was in her usual state of health until yesterday evening. The patient said that she ate dinner and right afterwards developed severe epigastric pain. The pain worsened and spread across her abdomen and into her chest. This morning the pain was still present so she presented to an outpatient urgent care and was referred to the emergency room. Workup in the emergency room revealed white blood cell count of 10.0, hemoglobin 11.0, platelet level of 223. Sodium level is 135, potassium 3.6, creatinine of 0.9 with a BUN of 27. Glucose level is 151. Total bilirubin was 1.6, AST 2446, ALT 1621, alkaline phosphatase was 243. Lipase was elevated at 2749. The patient had a CT scan of the abdomen and pelvis which revealed prominent fluid- filled loops of small bowel along with mild gastric wall thickening, possibly gastroenteritis. No acute small bowel obstruction. She there was mild possible fat stranding around the pancreas and nonspecific pericholecystic fluid. Abdominal ultrasound revealed gallbladder wall thickening with pericholecystic fluid. Negative sonographic Peterson sign but the pain had been given patient had been given pain medications. There was a 9 mm possible gallbladder polyp at the fundus. The patient then had an MRCP. She was found to have suspected acute cholecystitis with focal wall thickening and pericholecystic edema in the setting of gallstones. We did discuss the patient's CODE STATUS. The patient would like to be a full code and would want all aggressive measures to save her life. She would like her Marlon Loo [phone] along with her daughter Rochelle Hensley [phone] to be her surrogate decision makers - CONSULTS | PROCEDURES Consultations: Dr. Jones Procedures: Laparoscopic cholecystectomy - HOSPITAL COURSE Hospital Course: The patient was admitted to the hospital. She was found to have evidence of gallstone pancreatitis. She was made n.p.o. and received IV fluid hydration. General surgery was consulted. Her liver function test and lipase began to improve. On 02/04/2024 she went to the operating room for a laparoscopic cholecystectomy. She tolerated the procedure quite well. Her diet was successfully advanced. This morning she was seen by general surgery who feels that it safe to discharge to home with close outpatient follow-up. Surgery office will call her for a follow-up appointment. She also should follow-up with her primary care physician to have repeat liver function test performed to document that they are getting back to normal. Incidentally noted on urinalysis the patient had evidence of a urinary tract infection. She was asymptomatic however urine culture grew greater than 100,000 colonies of gram-negative rods. She received 1 g of IV Rocephin and will go out to complete a course of therapy for 2 more days with p.o. cefdinir. At this point maximum hospital benefit has been reached. The patient will be discharged today in stable condition. - ALLERGIES Allergies/Adverse Reactions: Allergies Allergy/AdvReac Type Severity Reaction Status Date / Time Sulfa (Sulfonamide Allergy Unknown Verified 02/02/24 09:36 Antibiotics) - MEDICATIONS Home Medications: Ambulatory Orders Medication Instructions Recorded Confirmed Cefdinir 300 mg PO BID #4 cap 02/05/24 - PHYSICAL EXAM AT DISCHARGE General Appearance: positive: No acute distress Eyes Bilateral: positive: Normal inspection ENT: positive: ENT inspection nml Neck: positive: Nml inspection Respiratory: positive: Chest non-tender, No respiratory distress, Breath sounds nml Cardiovascular: positive: Regular rate & rhythm, No murmur, No gallop. negative: Friction rub Peripheral Pulses: positive: 2+ Abdomen: positive: Nml bowel sounds, No distention, Other (Abdominal exam is benign. She has expected tenderness at her incision sites.). negative: Guarding, Rebound Skin: positive: Color nml, No rash, Warm, Dry Neurologic/Psychiatric: positive: Oriented x3, CN's nml (2-12) - LABS Result Diagrams: 02/05/24 06:31 02/05/24 06:31 - SEPSIS Current Stage of Sepsis: Ruled out - QUALITY (Female Hip Fx Only) Was patient sent home on osteoporosis medication?: No - FOLLOW UP Follow Up: The patient will follow-up with general surgery in about 1 week. She will follow-up with her primary care physician in 1 to 2 weeks. - TIME SPENT Time Spent in Discharge (Minutes): 45 (I saw the patient today with Dr. Sethi we have discussed the patient and she is in agreement with this assessment and plan.. )"
[2024-02-05] MEDS ORDERED: cefTRIAXone 1 GM VIAL ONE (09:13)
[2024-02-05 10:28] VITALS: BP 137/77; O2SAT 99
== END 2024-02-05 10:30 | disposition home or self-care (01) | DRG 418 ==
LOC: EDUNIT# → ED 09:18 → MS2 18:12
PROVIDERS: ADMIT Physician Assistant; ATTEND Physician Assistant
PROC: 0FT44ZZ Resection of Gallbladder, Percutaneous Endoscopic Approach (ICD-10-PCS; principal; 2024-02-04 08:00)
DX: K85.10 Biliary acute pancreatitis without necrosis or infection (principal); K80.00 Calculus of gallbladder with acute cholecystitis without obstruction; N39.0 Urinary tract infection, site not specified; R79.89 Other specified abnormal findings of blood chemistry; R74.01 Elevation of levels of liver transaminase levels; D64.9 Anemia, unspecified; R73.9 Hyperglycemia, unspecified; R01.1 Cardiac murmur, unspecified; B96.89 Other specified bacterial agents as the cause of diseases classified elsewhere; Z88.2 Allergy status to sulfonamides
CPT/HCPCS: 36415; 74177; 74181; 76705; 80053; 81001; 83690; 84484; 85025; 85027; 87086; 96361; 96374; 99285; A9270; J0131; J3490; J7120; Q9967; 81003; Q9966

== ENCOUNTER 2024-02-10 10:53 | Outpatient (CLI) | payer MEDICARE, OTHER ==
[2024-02-10 15:55] LABS: ALBUMIN 4.1 g/dL (3.2-5.5)
[2024-02-10 16:00] LABS: ALKALINE PHOSPHATASE 100 IU/L (42-121); ALT ALANINE AMINOTRANSFERASE 79 IU/L (10-60); AST ASPARTATE AMINOTRANSFERASE 26 IU/L (10-42); BILIRUBIN,DIRECT < 0.10 mg/dL (0.03-0.18); BILIRUBIN,TOTAL 0.5 mg/dL (0.2-1.0); TOTAL PROTEIN 6.3 g/dL (6.4-8.9)
== END 2024-02-10 10:54 | disposition home or self-care (01) ==
LOC: LAB.S 10:53
PROVIDERS: ATTEND Registered Nurse
DX: K80.20 Calculus of gallbladder without cholecystitis without obstruction (principal); K85.10 Biliary acute pancreatitis without necrosis or infection
CPT/HCPCS: 36415; 80076